=== PATIENT | male | born 1985 | race Caucasian/White ===

== ENCOUNTER 2017-04-05 14:21 | Emergency (ER) | payer OTHER ==
[2017-04-05 15:40] LABS: Basophils # (A) 0.1 k/uL (0-0.2); Basophils % (A) 1 %; CH 30.1; CHCM 34.4; Eosinophils # (A) 0.3 k/uL (0-0.7); Eosinophils % (A) 2 %; HCT 48.6 % (39.0-53.0); HDW 2.55; HGB 16.1 gm/dL (13.0-17.5); Luc % (Auto) 1; Lymphocytes # (A) 2.4 k/uL (1.0-4.8); Lymphocytes % (A) 18 %; MCH 29.2 pg (25.0-35.0); MCHC 33.2 g/dL (31.0-37.0); MCV 87.8 fL (80.0-100.0); Mean Platelet Volume 8.1; Monocytes # (A) 0.7 k/uL (0-1.0); Monocytes % (A) 5 %; Neutrophils # (A) 10.2 k/uL (1.3-7.7); Neutrophils % (A) 74 %; RBC 5.53 m/uL (4.30-5.90); RDW 15.2 % (11.5-15.5); WBC 13.8 k/uL (3.8-10.6); WBC (Perox) 13.71
[2017-04-05] MEDS: SODIUM CHLORIDE 0.9% 500 ML IV SCH ×3 (15:40→16:20)
--- NOTE | 2017-04-05 15:42 | ED ---
Abdominal Pain HPI - General Chief Complaint: Abdominal Pain Stated Complaint: abdominal pain Time Seen by Provider: 04/05/17 14:50 Source: patient Mode of arrival: ambulatory Limitations: no limitations - History of Present Illness Initial Comments: Kaleb is a 32-year-old male with a history of diverticulitis diagnosed approximately 5 and half to 6 months ago. This case of diverticulitis has been complicated by development of a anterior oh his fistula in his left lower quadrant. This fistula drains fluid as well as fecal material. Due to this the patient offers from chronic abdominal pain. She has been followed closely with infectious disease as well as general surgery. He is currently on oral amoxicillin due to previous abscess in his abdomen. He was scheduled to have surgery at this facility on Saturday however it was delayed until today and subsequently canceled due to insurance payment issues. Patient reports he didn' t know what to do after surgery was canceled so he came to the emergency department for reevaluation. She does report he continues to suffer from chronic abdominal pain, he does take Tylenol for this and states that he feels that Tylenol is no longer working. He is supposed to hear back from his insurance on April 15 regarding whether or not they will approve his surgery. Patient was diffusely followed at [facility] however he has transitioned his care to this hospital due to feeling that he wasn't getting treated at the hospital. In addition the patient was recently evaluated at an outside emergency department for abdominal pain 2 weeks ago at which time he had a computed tomography scan and was discharged home. - Related Data Home Medications Medication Instructions Recorded Confirmed Amoxicillin/Potassium Clav 1 tab PO Q12HR 03/29/17 04/05/17 [Augmentin 875-125 Tablet] Allergies Allergy/AdvReac Type Severity Reaction Status Date / Time No Known Allergies Allergy Verified 04/05/17 14:43 Review of Systems ROS Statement: Those systems with pertinent positive or pertinent negative responses have been documented in the HPI. ROS Other: All systems not noted in ROS Statement are negative. Constitutional: Denies: fever, chills ENT: Denies: throat pain Respiratory: Denies: cough, dyspnea Cardiovascular: Reports: palpitations. Denies: chest pain Endocrine: Reports: fatigue Gastrointestinal: Reports: abdominal pain, diarrhea. Denies: nausea, vomiting, constipation Genitourinary: Denies: dysuria Musculoskeletal: Denies: back pain Skin: Reports: other (fistula in LLQ of abdomen with surrounding skin irritation ) Neurological: Denies: weakness Psychiatric: Reports: anxiety (anxious over insurance issues regarding needed surgery) Hematological/Lymphatic: Denies: easy bleeding, easy bruising Past Medical History Additional Past Medical History / Comment(s): diverticular dx, hx of abscess, states has a fistula currently from drainage tube used for abscess. states also had thorocentesis History of Any Multi-Drug Resistant Organisms: None Reported Additional Past Surgical History / Comment(s): wisdom teeth Past Anesthesia/Blood Transfusion Reactions: No Reported Reaction Past Psychological History: No Psychological Hx Reported Smoking Status: Current every day smoker Past Alcohol Use History: None Reported Past Drug Use History: Marijuana - Past Family History Mother Family Medical History: No Reported History General Exam Limitations: no limitations General appearance: alert, anxious Head exam: Present: atraumatic, normocephalic Eye exam: Present: normal appearance, PERRL ENT exam: Present: normal exam Neck exam: Present: normal inspection. Absent: tenderness Respiratory exam: Present: normal lung sounds bilaterally. Absent: respiratory distress Cardiovascular Exam: Present: tachycardia GI/Abdominal exam: Present: soft, tenderness, normal bowel sounds, other ( fistula in LLQ draining ). Absent: distended, guarding, rebound Rectal exam: Present: deferred Extremities exam: Present: normal inspection, full ROM Back exam: Present: normal inspection Neurological exam: Present: alert, oriented X3, CN II-XII intact Psychiatric exam: Present: normal affect, normal mood Skin exam: Present: warm, dry Course Vital Signs 04/05/17 14:23 Temperature 98.3 F Pulse Rate 117 H Respiratory 18 Rate Blood Pressure 138/108 O2 Sat by Pulse 98 Oximetry Medical Decision Making - Medical Decision Making Patient seen and evaluated, history obtained from the patient Patient with known source of infection and tachycardia - will order sepsis order set Labs with only mild leukocytosis EKG, normal sinus rhythm, rate 98, noted to have incomplete right bundle branch block. Labs with only mild leukocytosis Patient reports feeling much better after morphine I discussed with the patient that at this time I don't feel there is anything acute that requires intervention. I do feel the patient needs follow-up with his infectious disease doctor to discuss whether or not he needs to continue antibiotics after they run out next week. In addition I think he needs continued follow-up with a surgeon to continue planning for surgical repair of the entero-colonic fistula. Patient agreed with this. Questions pertaining to care were answered to the best of my ability and the patient was discharged home in stable condition with plan for close follow-up with surgical planning. Patient was advised to call 911 or return to the emergency department should he develop any worsening signs of infection, worsening pain or any signs or symptoms she finds concerning. - Lab Data Result diagrams: 04/05/17 15:26 04/05/17 15: Lab Results 04/05/17 04/05/17 04/05/17 Range/Units 15:26 15: 15:26 WBC 13.8 H (3.8-10.6) k/uL RBC 5.53 (4.30-5.90) m/uL Hgb 16.1 (13.0-17.5) gm/dL Hct 48.6 (39.0-53.0) % MCV 87.8 (80.0-100.0) fL MCH 29.2 (25.0-35.0) pg MCHC 33.2 (31.0-37.0) g/dL RDW 15.2 (11.5-15.5) % Plt Count 259 (150-450) k/uL Neutrophils % 74 % Lymphocytes % 18 % Monocytes % 5 % Eosinophils % 2 % Basophils % 1 % Neutrophils # 10.2 H (1.3-7.7) k/uL Lymphocytes # 2.4 (1.0-4.8) k/uL Monocytes # 0.7 (0-1.0) k/uL Eosinophils # 0.3 (0-0.7) k/uL Basophils # 0.1 (0-0.2) k/uL PT (9.0-12.0) sec INR (<1.2) APTT (22.0-30.0) sec Sodium 137 (137-145) mmol/L Potassium 4.4 (3.5-5.1) mmol/L Chloride 103 (98-107) mmol/L Carbon Dioxide 23 (22-30) mmol/L Anion Gap 11 mmol/L BUN 14 (9-20) mg/dL Creatinine 0.70 (0.66-1.25) mg/dL Est GFR (MDRD) Af Amer >60 (>60 ml/min/1.73 sqM) Est GFR (MDRD) Non-Af >60 (>60 ml/min/1.73 sqM) Glucose 111 H (74-99) mg/dL Plasma Lactic Acid Mg 1.6 (0.7-2.0) mmol/L Calcium 9.7 (8.4-10.2) mg/dL Total Bilirubin 0.4 (0.2-1.3) mg/dL AST 30 (17-59) U/L ALT 58 (21-72) U/L Alkaline Phosphatase 69 (38-126) U/L Total Protein 7.8 (6.3-8.2) g/dL Albumin 4.4 (3.5-5.0) g/dL Urine Color Urine Appearance (Clear) Urine pH (5.0-8.0) Ur Specific [place] (1.001-1.035) Urine Protein (Negative) Urine Glucose (UA) (Negative) Urine Ketones (Negative) Urine Blood (Negative) Urine Nitrite (Negative) Urine Bilirubin (Negative) Urine Urobilinogen (<2.0) mg/dL Ur Leukocyte Esterase (Negative) 04/05/17 04/05/17 Range/Units 15:26 15:54 WBC (3.8-10.6) k/uL RBC (4.30-5.90) m/uL Hgb (13.0-17.5) gm/dL Hct (39.0-53.0) % MCV (80.0-100.0) fL MCH (25.0-35.0) pg MCHC (31.0-37.0) g/dL RDW (11.5-15.5) % Plt Count (150-450) k/uL Neutrophils % % Lymphocytes % % Monocytes % % Eosinophils % % Basophils % % Neutrophils # (1.3-7.7) k/uL Lymphocytes # (1.0-4.8) k/uL Monocytes # (0-1.0) k/uL Eosinophils # (0-0.7) k/uL Basophils # (0-0.2) k/uL PT 11.1 (9.0-12.0) sec INR 1.1 (<1.2) APTT 23.0 (22.0-30.0) sec Sodium (137-145) mmol/L Potassium (3.5-5.1) mmol/L Chloride (98-107) mmol/L Carbon Dioxide (22-30) mmol/L Anion Gap mmol/L BUN (9-20) mg/dL Creatinine (0.66-1.25) mg/dL Est GFR (MDRD) Af Amer (>60 ml/min/1.73 sqM) Est GFR (MDRD) Non-Af (>60 ml/min/1.73 sqM) Glucose (74-99) mg/dL Plasma Lactic Acid Mg (0.7-2.0) mmol/L Calcium (8.4-10.2) mg/dL Total Bilirubin (0.2-1.3) mg/dL AST (17-59) U/L ALT (21-72) U/L Alkaline Phosphatase (38-126) U/L Total Protein (6.3-8.2) g/dL Albumin (3.5-5.0) g/dL Urine Color Yellow Urine Appearance Clear (Clear) Urine pH 5.5 (5.0-8.0) Ur Specific [place] 1.024 (1.001-1.035) Urine Protein Negative (Negative) Urine Glucose (UA) Negative (Negative) Urine Ketones Negative (Negative) Urine Blood Negative (Negative) Urine Nitrite Negative (Negative) Urine Bilirubin Negative (Negative) Urine Urobilinogen <2.0 (<2.0) mg/dL Ur Leukocyte Esterase Negative (Negative) - EKG Data EKG shows normal: sinus rhythm Rate: normal Disposition Clinical Impression: Diverticulitis, Entero-colonic fistula Disposition: HOME SELF-CARE Condition: Good Instructions: Diverticulitis (ED) Referrals: Jassi Ivory MD [Primary Care Provider] - 1-2 days Benson Carrillo MD [STAFF PHYSICIAN] - 1-2 days Time of Disposition: 17:07
[2017-04-05 15:49] LABS: INR 1.1 (<1.2); Prothrombin Time 11.1 sec (9.0-12.0)
[2017-04-05 16:00] LABS: ALT 58 U/L (21-72); AST 30 U/L (17-59); Alkaline Phosphatase 69 U/L (38-126); Anion Gap 11 mmol/L; Blood Urea Nitrogen 14 mg/dL (9-20); Calcium 9.7 mg/dL (8.4-10.2); Carbon Dioxide 23 mmol/L (22-30); Chloride 103 mmol/L (98-107); Glucose 111 mg/dL (74-99); Non-African American GFR(MDRD) >60 (>60 ml/min/1.73 sqM); Potassium 4.4 mmol/L (3.5-5.1); Sodium 137 mmol/L (137-145); Total Bilirubin 0.4 mg/dL (0.2-1.3); Total Protein 7.8 g/dL (6.3-8.2)
[2017-04-05] MEDS ORDERED: MORPHINE SULFATE 4 MG/ML SYRINGE IV ONE (16:03)
[2017-04-05 16:07] LABS: Appearance,Urine Clear (Clear); Bilirubin,Urine Negative (Negative); Glucose,Urine (UA) Negative (Negative); Ketones,Urine Negative (Negative); Leukocyte Esterase,Urine Negative (Negative); Nitrite,Urine Negative (Negative); PH, Urine 5.5 (5.0-8.0); Protein,Urine Negative (Negative); Specific Gravity,Urine 1.024 (1.001-1.035); UA Billing (MACRO vs. MICRO) CHEM; Urobilinogen,Urine <2.0 mg/dL (<2.0)
[2017-04-05 17:58] VITALS: BP 138/90; PULSE 89; RESP 16; TEMP 97.8
== END 2017-04-05 17:56 | disposition home or self-care (01) ==
LOC: EC 14:21
DX: K63.2 Fistula of intestine (principal); K57.92 Diverticulitis of intestine, part unspecified, without perforation or abscess without bleeding; D72.829 Elevated white blood cell count, unspecified; I45.10 Unspecified right bundle-branch block; R00.0 Tachycardia, unspecified; L02.211 Cutaneous abscess of abdominal wall; F17.200 Nicotine dependence, unspecified, uncomplicated
CPT/HCPCS: 36415; 93005; 80053; 83605; 85025; 85610; 85730; 81003; 87040; 87086; 99284; 96374; 96361 ×2; J2270

== ENCOUNTER → 2018-09-22 | Outpatient (CLI) | payer OTHER ==
[2018-09-22 14:16] VITALS: BP 132/84; PULSE 88; TEMP 98.2; BMI 65.7
--- NOTE | 2018-09-22 16:49 | P.HPBAR ---
Bariatric H&P - History & Physicial H&P Date: 09/22/18 History & Physicial: Visit/CC: gastric sleeve consult Patient initial contact: Initial weight: 213.733 kg Initial weight in pounds: 471.20 Height: 5 ft 11 in Initial BMI: 65.7 Last weight: Current weight: 213.733 kg Current weight in pounds: 471.20 Current BMI: 65.7 Beatrice body weight (based on NIH guidelines): 78.018 kg Excess body weight loss: 0.0% The patient is a 33 year-old M who presents for Bariatric Assessment. Patient presents today for initial conversation received yesterday. He has had lifetime pros obesity. His BMI 65. Past Medical History Past Medical History: Diabetes Mellitus, Sleep Apnea/CPAP/BIPAP Additional Past Medical History / Comment(s): Type 2 DM, diverticular dx, hx of left colon fistula abscess, Hx thorocentesis (November 2016)., mild sleep apnea ( dx 10 yrs ago-no machine has sleep study scheduled for 11/04/18)., History of Any Multi-Drug Resistant Organisms: None Reported Past Surgical History: No Surgical Hx Reported Additional Past Surgical History / Comment(s): PICC LINE, THORACENTESIS, 05/03/17: "Low anterior resection takedown splenic flecture omenectomy" by Dr. Carrillo. Past Anesthesia/Blood Transfusion Reactions: No Reported Reaction Additional Past Anesthesia/Blood Transfusion Reaction / Comm: PT HAS NEVER RECEIVED ANESTHESIA Past Psychological History: ADD/ADHD Smoking Status: Former smoker Past Alcohol Use History: None Reported Additional Past Alcohol Use History / Comment(s): STARTED SMOKING AGE 17- quit July of 2018. Past Drug Use History: Marijuana Additional Drug Use History / Comment(s): occasional use, instructed not to use 24 hrs prior to Surgery. Pt states Medical Card. - Past Family History Mother Family Medical History: No Reported History Surgical - Exam Vital Signs Temp Pulse BP 98.2 F 88 132/84 09/22/18 13:48 09/22/18 13:48 09/22/18 13:48 - General well developed, well nourished, no distress - Abdomen Abdomen: soft, non tender Bariatric Assessment & Plan Plan: Morbid obesity, BMI 65. Patient is scheduled for EGD. Bariatric Checklist Checklist: Plan: Checklist: EGD: 1. Hiatal hernia: 2. H. Pylori: HgbA1c: Vitamin D: Smoking: Former smoker Primary care physician referral: Dr. Jassi Ivory ([place]) T: [phone] Psychiatry clearance: Cardiology clearance: Sleep study: Diet journal: VTE risk score: VTE risk level: Rehab needs at discharge:
== END | disposition home or self-care (01) ==
LOC: BARWHC3 13:37
PROVIDERS: ATTEND Surgery
DX: E66.01 Morbid (severe) obesity due to excess calories (principal); E11.9 Type 2 diabetes mellitus without complications; Z87.891 Personal history of nicotine dependence; Z68.44 Body mass index [BMI] 60.0-69.9, adult
CPT/HCPCS: 99211

== ENCOUNTER → 2018-09-22 | Outpatient (CLI) | payer OTHER | END | disposition home or self-care (01) | LOC: LABPAT 13:16 | PROVIDERS: ATTEND Surgery | DX: Z01.812 Encounter for preprocedural laboratory examination (principal); K43.0 Incisional hernia with obstruction, without gangrene | CPT/HCPCS: 36415 ==

== ENCOUNTER → 2018-09-29 | Outpatient (CLI) | payer OTHER ==
[2018-09-29 16:46] LABS: HCT 43.8 % (39.0-53.0); HGB 14.5 gm/dL (13.0-17.5); MCH 30.3 pg (25.0-35.0); MCHC 33.1 g/dL (31.0-37.0); MCV 91.5 fL (80.0-100.0); Mean Platelet Volume 8.2; Platelet Count 221 k/uL (150-450); RBC 4.79 m/uL (4.30-5.90); RDW 13.5 % (11.5-15.5); WBC 13.6 k/uL (3.8-10.6)
== END | disposition home or self-care (01) ==
LOC: LABPAT 15:47
PROVIDERS: ATTEND Anesthesiology
DX: Z01.818 Encounter for other preprocedural examination (principal); Z01.812 Encounter for preprocedural laboratory examination; K46.9 Unspecified abdominal hernia without obstruction or gangrene
CPT/HCPCS: 36415; 85027; 93005

== ENCOUNTER 2018-10-02 08:09 | Observation (INO) | payer OTHER ==
[2018-09-29 15:01] VITALS: BMI 65.7
[~2018-10-02 08:09] MED LIST: DEXAMETHASONE SOD PHOSPHATE 10 MG/ML 1 ML VIAL IV ONE; HEPARIN SODIUM,PORCINE 5,000 UNIT/ML 1 ML VIAL SQ ONE; HYDROmorphone 0.5 MG/0.5 ML SYRINGE IVP PRN; SCOPOLAMINE 1.5MG/72HR PATCH TRANSDERM ONE; ceFAZolin 3 GM in SODIUM CHLORIDE 0.9% 100 ML IVPB ONE
[2018-10-02] MEDS: LIDOCAINE 1% 20 ML VIAL (10MG/ML) FOR IV START INTRADERMA PRN ×2 (08:30→08:38)
[2018-10-02 08:38] LABS: Glucose,Whole Blood 116 mg/dL (75-99)
[2018-10-02] MEDS: LACTATED RINGERS 1,000 ML IV SCH (08:38)
[2018-10-02] MEDS: ONDANSETRON 4 MG/2 ML VIAL IVP ONE ×2 (08:38→12:29)
[2018-10-02] MEDS ORDERED: MIDAZOLAM (PF) 2 MG/2 ML VIAL IV ONE (08:42)
--- NOTE | 2018-10-02 09:52 | P.GSHP ---
History of Present Illness H&P Date: 10/02/18 Chief Complaint: Incisional hernia This is a 31-year-old male who has developed incisional hernia. Patient had a previous low anterior resection for diverticulitis. He has a periumbilical incisional hernia. He is morbidly obese with a BMI 66 Past Medical History Past Medical History: Diabetes Mellitus, Sleep Apnea/CPAP/BIPAP Additional Past Medical History / Comment(s): Type 2 DM, diverticular dx, hx of left colon fistula abscess, Hx thorocentesis (November 2016)., mild sleep apnea ( dx 10 yrs ago-no machine has sleep study scheduled for 11/04/18)., History of Any Multi-Drug Resistant Organisms: None Reported Past Surgical History: No Surgical Hx Reported Additional Past Surgical History / Comment(s): PICC LINE, THORACENTESIS, 05/03/17: "Low anterior resection takedown splenic flecture omenectomy" by Dr. Carrillo. Past Anesthesia/Blood Transfusion Reactions: No Reported Reaction Additional Past Anesthesia/Blood Transfusion Reaction / Comment(s): PT HAS NEVER RECEIVED ANESTHESIA Additional Past Alcohol Use History / Comment(s): STARTED SMOKING AGE 17- quit July of 2018. - Past Family History Mother Family Medical History: No Reported History Medications and Allergies Home Medications Medication Instructions Recorded Confirmed Type metFORMIN HCL [Glucophage] 500 mg PO BID 09/22/18 10/02/18 History Allergies Allergy/AdvReac Type Severity Reaction Status Date / Time No Known Allergies Allergy Verified 10/02/18 08:27 Surgical - Exam Vital Signs Temp Pulse Resp BP Pulse Ox 97.7 F 85 16 155/88 95 10/02/18 08:28 10/02/18 08:28 10/02/18 08:28 10/02/18 08:28 10/02/18 08:28 - General well developed, well nourished, no distress - Eyes PERRL - ENT normal pinna, normal nares - Neck no masses - Respiratory normal expansion - Cardiovascular Rhythm: regular - Abdomen Abdomen: soft, non tender Hernia: incisional (10 cm incisional hernia) Results - Labs Abnormal Lab Results - Last 24 Hours (Table) 10/02/18 Range/Units 08:30 POC Glucose (mg/dL) 116 H (75-99) mg/dL Assessment and Plan Assessment: Incisional hernia. We'll perform open repair.
[2018-10-02] MEDS ORDERED: HYDROmorphone (PF) 1 MG/ML ONE (10:02)
[2018-10-02] MEDS ORDERED: LIDOCAINE 1% INJ 10MG/ML (20 ML MDV) ONE (10:02)
[2018-10-02] MEDS ORDERED: PROPOFOL 10 MG/ML 20 ML VIAL IV ONE (10:02)
[2018-10-02] MEDS ORDERED: fentaNYL (PF) 50 MCG/ML 2 ML AMP ONE (10:02)
[2018-10-02] MEDS ORDERED: NEOSTIGMINE 1 MG/ML 10 ML VIAL ONE (10:02)
[2018-10-02] MEDS ORDERED: ROCURONIUM BROMIDE 10 MG/ML 10 ML VIAL IV ONE (10:02)
[2018-10-02] MEDS ORDERED: SUCCINYLCHOLINE CHLORIDE VIAL 200 MG/10 ML VIAL IV ONE (10:02)
[2018-10-02] MEDS ORDERED: GLYCOPYRROLATE 0.2 MG/ML 2 ML VIAL ONE (10:02)
[2018-10-02] MEDS ORDERED: NALOXONE 0.4 MG/ML 1 ML VIAL IV PRN (11:54)
[2018-10-02] MEDS ORDERED: LACTATED RINGERS 1,000 ML IV ONE (11:54)
[2018-10-02] MEDS ORDERED: ONDANSETRON 4 MG/2 ML VIAL IVP PRN (11:54)
--- NOTE | 2018-10-02 11:57 | P.OP ---
Date of Procedure: 10/02/18 Preoperative Diagnosis: Incisional hernia Postoperative Diagnosis: Viktor incisional hernia Morbid obesity BMI 66 Procedure(s) Performed: (Incisional hernia with mesh Anesthesia: ALEXEI Surgeon: Benson Carrillo Estimated Blood Loss (ml): 20 Pathology: none sent Condition: stable Disposition: PACU Description of Procedure: A shunt placed on the operative table in the supine position. He was morbidly obese. His BMI was 66. Patient received general anesthesia. His abdomen was prepped and draped usual sterile fashion. The patient had a large midline incisional hernia. The skin was incised midline. Using cautery the subcutaneous tissue divided. The abdominal wall was quite thick approximately 6 inches of subcutaneous fat. The fascial defect was visualized. The fascia was closed using left cautery. The fascial defect was then closed using number once traffic suture. After this performed a Prolene mesh was placed over the top of the repair and secured with the secure strap tacker. A BLADIMIR drains placed through separate stab incision and placed the top of the mesh. Freedom's fascia close [place]. Skin was closed with jonny. Patient top procedure well. He was sent to recovery in stable condition.
[2018-10-02] MEDS ORDERED: KETOROLAC 30 MG/ML 1 ML VIAL IVP ONE (12:31)
[2018-10-02] MEDS: HYDROmorphone 1 MG/ML 1 ML SYRINGE IVP ONE ×2 (12:41→12:49)
[2018-10-02] MEDS: HYDROmorphone 0.5 MG/0.5 ML SYRINGE IVP PRN ×3 (13:35→20:52)
--- NOTE | 2018-10-02 15:11 | P.CONS ---
History of Present Illness - Reason for Consult Obstructive sleep apnea - History of Present Illness 33--year-old male morbidly obese, with history of sleep apnea diet controlled diabetes mellitus came in for incisional hernia repair sepsis and underwent surgery patient is comparing of severe pain patient is already on Toradol and Dilaudid along with GI prophylaxis. Patient denied nausea vomiting. Patient's abdominal binder was discontinued as this is causing more pain as it started "for his belly. Patient denied any dysuria nausea vomiting. Review of Systems REVIEW OF SYSTEMS: CONSTITUTIONAL: No fever, no malaise, no fatigue. HEENT: No recent visual problems or hearing problems. Denied any sore throat. CARDIOVASCULAR: No chest pain, orthopnea, PND, no palpitations, no syncope. PULMONARY: No shortness of breath, no cough, no hemoptysis. GASTROINTESTINAL: No diarrhea, no nausea, no vomiting, NEUROLOGICAL: No headaches, no weakness, no numbness. HEMATOLOGICAL: Denies any bleeding or petechiae. GENITOURINARY: Denies any burning micturition, frequency, or urgency. MUSCULOSKELETAL/RHEUMATOLOGICAL: Denies any joint pain, swelling, or any muscle pain. ENDOCRINE: Denies any polyuria or polydipsia. The rest of the 14-point review of systems is negative. Past Medical History Past Medical History: Diabetes Mellitus, Sleep Apnea/CPAP/BIPAP Additional Past Medical History / Comment(s): Type 2 DM, diverticular dx, hx of left colon fistula abscess, Hx thorocentesis (November 2016)., mild sleep apnea ( dx 10 yrs ago-no machine has sleep study scheduled for 11/04/18)., History of Any Multi-Drug Resistant Organisms: None Reported Past Surgical History: No Surgical Hx Reported Additional Past Surgical History / Comment(s): PICC LINE, THORACENTESIS, 05/03/17: "Low anterior resection takedown splenic flecture omenectomy" by Dr. Carrillo. Past Anesthesia/Blood Transfusion Reactions: No Reported Reaction Additional Past Anesthesia/Blood Transfusion Reaction / Comm: PT HAS NEVER RECEIVED ANESTHESIA Past Psychological History: ADD/ADHD Smoking Status: Former smoker Past Alcohol Use History: None Reported Additional Past Alcohol Use History / Comment(s): STARTED SMOKING AGE 17- quit July of 2018. Past Drug Use History: Marijuana Additional Drug Use History / Comment(s): occasional use, instructed not to use 24 hrs prior to Surgery. Pt states Medical Card. - Past Family History Mother Family Medical History: No Reported History Medications and Allergies Home Medications Medication Instructions Recorded Confirmed Type metFORMIN HCL [Glucophage] 500 mg PO BID 09/22/18 10/02/18 History Allergies Allergy/AdvReac Type Severity Reaction Status Date / Time No Known Allergies Allergy Verified 10/02/18 08:27 Physical Exam Vitals: Vital Signs Temp Pulse Pulse Resp BP BP Pulse Ox 10/02/18 15:01 89 16 10/02/18 13:15 94 L 10/02/18 13:06 89 16 143/62 98 10/02/18 12:51 90 18 146/63 99 10/02/18 12:36 96 20 144/66 100 10/02/18 12:21 94 20 150/70 94 L 10/02/18 12:06 97.4 F L 97 18 149/80 96 10/02/18 08:57 82 16 142/63 95 10/02/18 08:28 97.7 F 85 16 155/88 95 Intake and Output 10/02/18 10/02/18 10/02/18 06:59 14:59 22:59 Intake Total 1700 Output Total 50 Balance 1650 Intake: IV 1300 Oral 400 Output: Estimated Blood Loss 50 PHYSICAL EXAMINATION: GENERAL: The patient is alert and oriented x3, not in any acute distress. Well developed, well nourished. HEENT: Pupils are round and equally reacting to light. EOMI. No scleral icterus. No conjunctival pallor. Normocephalic, atraumatic. No pharyngeal erythema. No thyromegaly. CARDIOVASCULAR: S1 and S2 present. No murmurs, rubs, or gallops. PULMONARY: Chest is clear to auscultation, no wheezing or crackles. ABDOMEN: Soft, nontender, nondistended, normoactive bowel sounds. Surgical site areas appear to be clean MUSCULOSKELETAL: No joint swelling or deformity. EXTREMITIES: No cyanosis, clubbing, or pedal edema. NEUROLOGICAL: Gross neurological examination did not reveal any focal deficits. SKIN: No rashes. Results Labs: Abnormal Lab Results - Last 24 Hours (Table) 10/02/18 Range/Units 08:30 POC Glucose (mg/dL) 116 H (75-99) mg/dL Assessment and Plan Plan: Status sleep apnea: Patient will be resumed and continued on 9 CPAP machine. -Morbid obesity: Counseling was provided patient is following up in bariatric surgery clinic incisional hernia repair and patient is on appropriate pain medications for the pain management as per primary service -DVT prophylaxis as per primary service -Diet controlled diabetes mellitus will monitor blood sugars he had no further intervention at this time.
[2018-10-02] MEDS: KETOROLAC 30 MG/ML 1 ML VIAL IVP SCH ×2 (17:53→23:37)
[2018-10-02] MEDS: HYDROcodone/APAP 5-325MG 1 EACH TAB PO PRN (19:43)
[2018-10-02] MEDS: DOCUSATE 100 MG CAP PO SCH (20:51)
[2018-10-03] MEDS: HYDROmorphone 0.5 MG/0.5 ML SYRINGE IVP PRN (00:49)
[2018-10-03] MEDS: LACTATED RINGERS 1,000 ML IV SCH ×2 (04:33→05:48)
[2018-10-03] MEDS: KETOROLAC 30 MG/ML 1 ML VIAL IVP SCH ×2 (05:46→11:41)
[2018-10-03 08:28] VITALS: BP 132/84; PULSE 83; RESP 16; TEMP 97.5
[2018-10-03] MEDS ORDERED: ENOXAPARIN 40 MG/0.4 ML SYRINGE SQ SCH (09:00)
[2018-10-03] MEDS: DOCUSATE 100 MG CAP PO SCH (09:23)
[2018-10-03] MEDS: HYDROcodone/APAP 5-325MG 1 EACH TAB PO PRN (09:23)
--- NOTE | 2018-10-03 10:12 | P.DS ---
Providers Date of admission: 10/02/18 21:42 Expected date of discharge: 10/03/18 Attending physician: Benson Carrillo Consults: 10/02/18 11:54 Consult Physician Routine Consulting Provider: Cherelle Salmeron Consult Reason/Comments: Medical management Do you want consulting provider notified?: Yes Primary care physician: [facility] Course: 33-year-old male who underwent repair of incisional hernia with Dr. Carrillo on 10/02/2018. Patient is doing well postoperatively without any immediate complications. Patient's pain is controlled on oral medications. Denies nausea or vomiting. Tolerating PO intake. Vital signs are stable. Patient is stable for discharge home today. Please see EMR for further hospital course details. Discharge diagnosis 1. s/p repair of incisional hernia The above dictated assessment and findings were discussed with Dr. Carrillo. The impression and plan of care have been directed as dictated. Saima Uribe, nurse practitioner, acting as scribe for Dr. Carrillo. Plan - Discharge Summary Discharge Rx Participant: Yes New Discharge Prescriptions: New Hydrocodone/Acetaminophen [[place] 5-325] 1 tab PO Q4HR PRN 3 Days #18 tab PRN Reason: Pain Docusate [Colace] 100 mg PO BID #30 capsule No Action metFORMIN HCL [Glucophage] 500 mg PO BID Discharge Medication List metFORMIN HCL [Glucophage] 500 mg PO BID 09/22/18 [History] Docusate [Colace] 100 mg PO BID #30 capsule 10/03/18 [Rx] Hydrocodone/Acetaminophen [[place] 5-325] 1 tab PO Q4HR PRN 3 Days #18 tab 10/03/18 [Rx] Follow up Appointment(s)/Referral(s): Benson Carrillo MD [STAFF PHYSICIAN] - 10/09/18 3:20 pm
--- NOTE | 2018-10-03 11:12 | P.PN ---
Subjective patient is clinically doing well can be discharged from medical perspective. Pain is better controlled no overnight events. I counseled him regarding the importance of sleep study, weight loss. Constitutional: Denied any fatigue denied any fever. Cardio vascular: denied any chest pain, palpitations Gastrointestinal denied any nausea vomiting Pulmonary: Denied any shortness of breath cough Neurologic denied any new focal deficits All inpatient medications were reviewed and appropriate changes in these medications as dictated in the interval history and assessment and plan. Objective - Vital Signs Vital signs: Vital Signs Temp 97.5 F L 10/03/18 07:00 Pulse 83 10/03/18 07:00 Resp 16 10/03/18 07:00 BP 132/84 10/03/18 07:00 Pulse Ox 97 10/03/18 07:00 Intake & Output 10/02/18 10/03/18 10/03/18 18:59 06:59 18:59 Intake Total 1700 200 Output Total 600 60 30 Balance 1100 140 -30 Intake: IV 1300 Intake, IV Titration 200 Amount Lactated Ringers 1,000 ml 200 @ 20 mls/hr IV .Q24H CHRISTOPH Rx#:[id number] Oral 400 Output: Drainage 100 60 30 Abdomen 100 60 30 Urine 450 Estimated Blood Loss 50 Other: Voiding Method Toilet Toilet Urinal # Voids 1 1 - Exam PHYSICAL EXAMINATION: GENERAL: The patient is alert and oriented x3, not in any acute distress. Well developed, well nourished. HEENT: Pupils are round and equally reacting to light. EOMI. No scleral icterus. No conjunctival pallor. Normocephalic, atraumatic. No pharyngeal erythema. No thyromegaly. CARDIOVASCULAR: S1 and S2 present. No murmurs, rubs, or gallops. PULMONARY: Chest is clear to auscultation, no wheezing or crackles. ABDOMEN: Soft, nontender, nondistended, normoactive bowel sounds. Surgical site areas appear to be clean MUSCULOSKELETAL: No joint swelling or deformity. EXTREMITIES: No cyanosis, clubbing, or pedal edema. NEUROLOGICAL: Gross neurological examination did not reveal any focal deficits. SKIN: No rashes. Assessment and Plan Plan: Status sleep apnea: -Morbid obesity: Counseling was provided patient is following up in bariatric surgery clinic incisional hernia repair and patient is on appropriate pain medications -DVT prophylaxis as per primary service -Diet controlled diabetes mellitus will monitor blood sugars he had no further intervention at this time.
== END 2018-10-03 13:54 | disposition home or self-care (01) ==
LOC: OR 08:09 → 4SSUR 12:06 → OR 21:42
PROVIDERS: ADMIT Surgery; ATTEND Surgery
DX: K43.2 Incisional hernia without obstruction or gangrene (principal); E66.01 Morbid (severe) obesity due to excess calories; Z68.44 Body mass index [BMI] 60.0-69.9, adult; E11.9 Type 2 diabetes mellitus without complications; G47.33 Obstructive sleep apnea (adult) (pediatric); Z99.89 Dependence on other enabling machines and devices; Z98.0 Intestinal bypass and anastomosis status; Z87.891 Personal history of nicotine dependence; Z79.84 Long term (current) use of oral hypoglycemic drugs
CPT/HCPCS: 49560; 49568; 86900; 86901; 86850; G0378 ×2; C1781; J0330; J1644; J1100; J2710; J0690; J2405; J2001; J1650; J3010; J1885 ×2; J1170 ×3; J2704; J2250

== ENCOUNTER 2018-11-03 06:43 | Day surgery (SDC) | payer OTHER ==
[2018-10-29 13:41] VITALS: BMI 62.7
[~2018-11-03 06:43] MED LIST changes: -DEXAMETHASONE SOD PHOSPHATE 10 MG/ML 1 ML VIAL IV ONE; -HEPARIN SODIUM,PORCINE 5,000 UNIT/ML 1 ML VIAL SQ ONE; -HYDROmorphone 0.5 MG/0.5 ML SYRINGE IVP PRN; +LACTATED RINGERS 1,000 ML IV SCH; -SCOPOLAMINE 1.5MG/72HR PATCH TRANSDERM ONE; -ceFAZolin 3 GM in SODIUM CHLORIDE 0.9% 100 ML IVPB ONE
[2018-11-03 07:24] VITALS: TEMP 97.7
[2018-11-03] MEDS ORDERED: PROPOFOL 10 MG/ML 20 ML VIAL IV ONE (07:47)
[2018-11-03 07:50] LABS: Glucose,Whole Blood 119 mg/dL (75-99)
--- NOTE | 2018-11-03 07:50 | P.GSHP ---
History of Present Illness H&P Date: 11/03/18 Chief Complaint: GERD This is a 33-year-old male who presents today for EGD. He's had issues with GERD. His BMI is 63. He is undergoing workup for sleeve gastrectomy. Past Medical History Past Medical History: Diabetes Mellitus, Sleep Apnea/CPAP/BIPAP Additional Past Medical History / Comment(s): Type 2 DM, diverticular dx, hx of left colon fistula abscess, Hx thorocentesis (November 2016). mild sleep apnea ( dx 10 yrs ago-no machine has sleep study scheduled for 11/04/18). INCISIONAL HERNIA 10/02/18, SITES HEALING WELL. History of Any Multi-Drug Resistant Organisms: None Reported Past Surgical History: Bowel Resection, Hernia Repair Additional Past Surgical History / Comment(s): PICC LINE, THORACENTESIS, 05/03/17: "Low anterior resection takedown splenic flecture omenectomy" by Dr. Carrillo. INCISIONAL HERNIA W/ MESH 10/02/18. Past Anesthesia/Blood Transfusion Reactions: No Reported Reaction Additional Past Anesthesia/Blood Transfusion Reaction / Comment(s): PT HAS NEVER RECEIVED ANESTHESIA Smoking Status: Former smoker - Past Family History Mother Family Medical History: No Reported History Medications and Allergies Home Medications Medication Instructions Recorded Confirmed Type metFORMIN HCL [Glucophage] 500 mg PO BID 09/22/18 11/03/18 History Ibuprofen [Advil] 800 mg PO Q8HR PRN 10/29/18 10/29/18 History Allergies Allergy/AdvReac Type Severity Reaction Status Date / Time No Known Allergies Allergy Verified 10/29/18 13:25 Surgical - Exam Vital Signs Temp Pulse Resp BP Pulse Ox 97.7 F 82 14 138/80 97 11/03/18 07:20 11/03/18 07:20 11/03/18 07:20 11/03/18 07:20 11/03/18 07:20 - General well developed, well nourished, no distress - Eyes PERRL - ENT normal pinna - Neck no masses - Respiratory normal expansion - Cardiovascular Rhythm: regular - Abdomen Abdomen: soft, non tender Assessment and Plan Assessment: GERD, morbid obesity. We'll perform EGD.
--- NOTE | 2018-11-03 08:02 | P.OP ---
Date of Procedure: 11/03/18 Preoperative Diagnosis: Morbid obesity GERD BMI 63 Postoperative Diagnosis: Antral gastritis Procedure(s) Performed: EGD Anesthesia: MAC Surgeon: Benson Carrillo Pathology: other (Antrum) Condition: stable Disposition: PACU Description of Procedure: The patient's placed on the endoscopy table in the lateral position. He received IV sedation. The gastroscope placed oropharynx and passed in the esophagus and into the stomach. Scope was then placed through the pylorus. The first and second portion of the duodenum appeared normal. Scope was then brought back the antrum this was mildly inflamed. A biopsies was performed. The scope was then retroflexed and the remainder of the stomach appeared normal. The GE junction was at 40 cm the distal esophagus appeared normal. There was no evidence of a significant hiatal hernia. The proximal esophagus appeared normal. Scope was withdrawn for patient.
[2018-11-03 08:12] VITALS: RESP 16
[2018-11-03 08:50] VITALS: BP 122/68; PULSE 86
== END 2018-11-03 09:10 | disposition home or self-care (01) ==
LOC: ORWHC2ENDO 06:43
PROVIDERS: ATTEND Surgery
DX: K21.9 Gastro-esophageal reflux disease without esophagitis (principal); K29.50 Unspecified chronic gastritis without bleeding; E11.9 Type 2 diabetes mellitus without complications; Z90.49 Acquired absence of other specified parts of digestive tract; Z95.828 Presence of other vascular implants and grafts; Z87.891 Personal history of nicotine dependence; Z79.84 Long term (current) use of oral hypoglycemic drugs; E66.01 Morbid (severe) obesity due to excess calories; Z68.44 Body mass index [BMI] 60.0-69.9, adult; G47.33 Obstructive sleep apnea (adult) (pediatric)
CPT/HCPCS: 88305; 43239; J2704

== ENCOUNTER → 2018-11-04 | Outpatient (CLI) | payer OTHER ==
--- NOTE | 2018-11-04 21:15 | CONS ---
CONSULTATION REASON FOR CONSULTATION: Sleep apnea. This is a morbidly obese 33-year-old male patient who was referred to me for sleep apnea evaluation. The patient has gained significant amount of weight over the years. For example over the past 10 years, he has gained more than 150 pounds. He had a complicated diverticulitis and subsequently he required a colectomy and he developed an abdominal hernia which was repaired recently by Dr. Carrillo. His colectomy was 2 years ago. His hernia repair was approximately a month ago. The patient, however, is quite symptomatic. He snores, quits breathing. He is somnolent and sleepy during the day and he has the classical manifestations of obstructive sleep apnea. He goes to bed around 11 p.m., wakes up at 5 a.m. in the morning, tired and fatigued and at times has difficulty in functioning. 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 He is currently seeking bariatric surgery. No sleep paralysis. No hallucinations. No cataplexy. PAST MEDICAL HISTORY: Morbid obesity, and diabetes mellitus. PAST SURGICAL HISTORY: Includes complicated diverticulitis requiring bowel resection. Incisional hernia repair and endoscopy including EGD. DRUG ALLERGIES: Not known. OUTPATIENT MEDICATION: Includes metformin 500 mg twice a day. SOCIAL HISTORY: Occasional smoker. No history of alcohol. No history of IV drugs. FAMILY HISTORY: Negative for sleep apnea. REVIEW OF SYSTEMS: Fourteen-point review of system was done. Denies waking up choking or gasping for air. No restlessness in lower extremities. No sleepwalking or sleep talking. No grinding of the teeth. He is a mouth breather. He wakes up with dry mouth. He has occasional palpitations. No heartburn. No chest pain, claustrophobia or depression. His current vital signs, BP is 158/75, pulse 90, respirations 16, temperature 98.3, saturation 95% on room air. Height 5 feet 11 inches, weight is 468. BMI 65.2, and neck size 20.5 inches. General appearance: Obese, calm, comfortable. Head is atraumatic, normocephalic. NECK: Supple. There is no JVD. No goiter or neck masses. Mallampati class IV. There is no goiter or neck masses. Lungs diminished otherwise clear especially in the lung bases. HEART: Sounds are distant. Regular rate and rhythm. Normal S1, S2. ABDOMEN: Obese, soft. Organs cannot be palpated. There is no direct tenderness, rebound or guarding. EXTREMITIES: Trace edema. No cyanosis or clubbing. Skin negative for any wounds. No cellulitis. No wounds or ulcerations. The abdominal wound over the anterior abdominal wall was dry clean and intact. The patient is wearing an abdominal binder. NEUROLOGIC: Alert and oriented x3. There is no focal neurological deficits. PSYCHIATRIC: Negative for anxiety or depression. IMPRESSION: 1. Chronic hypersomnia under investigation high likelihood for obstructive sleep apnea. 2. Morbid obesity with a BMI of 65.2. 3. Loud snoring. 4. Abdominal hernia repair. 5. History of complicated diverticulitis status post colectomy with primary anastomosis. 6. pickup driver. PLAN: This patient is currently not working. He has not been working for around a year. 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 He has manifestations of obstructive sleep apnea that needs to be further investigated. He is also seeking bariatric surgery in the future. For all these reasons, a polysomnogram is indicated. Implement good sleep hygiene measures. Sleep on this side. Encourage losing weight and will make further recommendations if CPAP treatment is needed based on the results of the polysomnogram. MMODL / IJN: [id number] /
== END | disposition home or self-care (01) ==
LOC: SLEEP 14:25
PROVIDERS: ATTEND Internal Medicine Critical Care Medicine
DX: G47.10 Hypersomnia, unspecified (principal); E66.01 Morbid (severe) obesity due to excess calories; R06.83 Snoring; E11.9 Type 2 diabetes mellitus without complications; Z68.44 Body mass index [BMI] 60.0-69.9, adult; Z87.19 Personal history of other diseases of the digestive system; Z90.49 Acquired absence of other specified parts of digestive tract; Z98.890 Other specified postprocedural states; Z79.84 Long term (current) use of oral hypoglycemic drugs
CPT/HCPCS: 99211

== ENCOUNTER → 2018-12-01 | Outpatient (CLI) | payer OTHER ==
[2018-12-01 15:39] VITALS: BP 154/93; PULSE 90; TEMP 98.4; BMI 65.4
--- NOTE | 2018-12-05 13:22 | P.HPBAR ---
Bariatric H&P - History & Physicial H&P Date: 12/01/18 History & Physicial: Visit/CC: follow up egd Patient initial contact: Initial weight: 213.733 kg Initial weight in pounds: 471.20 Height: 5 ft 11 in Initial BMI: 65.7 Last weight: Current weight: 212.735 kg Current weight in pounds: 469.00 Current BMI: 65.4 [place] body weight (based on NIH guidelines): 78.018 kg Excess body weight loss: 0.7% The patient is a 33 year-old M who presents for Bariatric Assessment. Patient presents today for presurgical consultation. He says has EGD performed. His BMI is 65. Past Medical History Past Medical History: Diabetes Mellitus, Sleep Apnea/CPAP/BIPAP Additional Past Medical History / Comment(s): Type 2 DM, diverticular dx, hx of left colon fistula abscess, Hx thorocentesis (November 2016)., mild sleep apnea ( dx 10 yrs ago-no machine has sleep study scheduled for 11/04/18)., History of Any Multi-Drug Resistant Organisms: None Reported Past Surgical History: No Surgical Hx Reported, Hernia Repair Additional Past Surgical History / Comment(s): PICC LINE, THORACENTESIS, 05/03/17: "Low anterior resection takedown splenic flecture omenectomy" by Dr. Carrillo. Past Anesthesia/Blood Transfusion Reactions: No Reported Reaction Additional Past Anesthesia/Blood Transfusion Reaction / Comm: PT HAS NEVER RECEIVED ANESTHESIA Past Psychological History: ADD/ADHD Smoking Status: Former smoker Past Alcohol Use History: None Reported Additional Past Alcohol Use History / Comment(s): STARTED SMOKING AGE 17- quit July of 2018. Past Drug Use History: Marijuana Additional Drug Use History / Comment(s): occasional use, instructed not to use 24 hrs prior to Surgery. Pt states Medical Card. - Past Family History Mother Family Medical History: No Reported History Surgical - Exam Vital Signs Temp Pulse BP 98.4 F 90 154/93 12/01/18 15:37 12/01/18 15:37 12/01/18 15:37 - General well nourished, no distress - Abdomen Abdomen: soft, non tender Bariatric Assessment & Plan Plan: Morbid obesity, BMI 65. Patient will follow-up in 8 weeks. We will schedule him for sleeve gastrectomy once his insurance authorization requirements have been met. Bariatric Checklist Checklist: Plan: Checklist: EGD: 1. Hiatal hernia: 2. H. Pylori: HgbA1c: Vitamin D: Smoking: Former smoker Primary care physician referral: Dr. Jassi Ivory ([place]) T: [phone] Psychiatry clearance: Cardiology clearance: Sleep study: Diet journal: VTE risk score: VTE risk level: Rehab needs at discharge:
== END | disposition home or self-care (01) ==
LOC: BARWHC3 14:57
PROVIDERS: ATTEND Surgery
DX: E66.01 Morbid (severe) obesity due to excess calories (principal); Z68.44 Body mass index [BMI] 60.0-69.9, adult
CPT/HCPCS: 99211

== ENCOUNTER → 2019-02-16 | Outpatient (CLI) | payer OTHER ==
[2019-02-16 15:05] VITALS: BP 108/82; PULSE 58; TEMP 98.3; BMI 64.0
--- NOTE | 2019-02-16 15:07 | P.HPBAR ---
Bariatric H&P - History & Physicial H&P Date: 02/16/19 History & Physicial: Visit/CC: presurgical visit Patient initial contact: Initial weight: 213.733 kg Initial weight in pounds: 471.20 Height: 5 ft 11 in Initial BMI: 65.7 Last weight: Current weight: 208.199 kg Current weight in pounds: 459.00 Current BMI: 64.0 [place] body weight (based on NIH guidelines): 78.018 kg Excess body weight loss: 4.0% The patient is a 33 year-old M who presents for Bariatric Assessment. Patient presents today for sleeve gastrectomy consultation. Apparently he has almost completed his supervised weight loss. He remains morbidly obese with BMI 64. Past Medical History Past Medical History: Diabetes Mellitus, Sleep Apnea/CPAP/BIPAP Additional Past Medical History / Comment(s): Type 2 DM, diverticular dx, hx of left colon fistula abscess, Hx thorocentesis (November 2016)., mild sleep apnea ( dx 10 yrs ago-no machine has sleep study scheduled for 11/04/18)., History of Any Multi-Drug Resistant Organisms: None Reported Past Surgical History: No Surgical Hx Reported, Hernia Repair Additional Past Surgical History / Comment(s): PICC LINE, THORACENTESIS, 05/03/17: "Low anterior resection takedown splenic flecture omenectomy" by Dr. Carrillo. Past Anesthesia/Blood Transfusion Reactions: No Reported Reaction Additional Past Anesthesia/Blood Transfusion Reaction / Comm: PT HAS NEVER RECEIVED ANESTHESIA Past Psychological History: ADD/ADHD Smoking Status: Former smoker Past Alcohol Use History: None Reported Additional Past Alcohol Use History / Comment(s): STARTED SMOKING AGE 17- quit July of 2018. Past Drug Use History: Marijuana Additional Drug Use History / Comment(s): occasional use, instructed not to use 24 hrs prior to Surgery. Pt states Medical Card. - Past Family History Mother Family Medical History: No Reported History Surgical - Exam Vital Signs Temp Pulse BP 98.3 F 58 L 108/82 02/16/19 15:02 02/16/19 15:02 02/16/19 15:02 - General well developed, well nourished, no distress - Eyes PERRL - ENT normal pinna - Neck no masses - Respiratory normal expansion - Cardiovascular Rhythm: regular - Abdomen Abdomen: soft Hernia: incisional Bariatric Assessment & Plan Plan: RBC. Patient will be scheduled for sleeve gastrectomy once his insurance authorization criteria have been met. Bariatric Checklist Checklist: Plan: Checklist: EGD: 1. Hiatal hernia: 2. H. Pylori: HgbA1c: Vitamin D: Smoking: Former smoker Primary care physician referral: Dr. Jassi Ivory ([place]) T: [phone] Psychiatry clearance: Cardiology clearance: Sleep study: Diet journal: VTE risk score: VTE risk level: Rehab needs at discharge:
== END | disposition home or self-care (01) ==
LOC: BARWHC3 14:15
PROVIDERS: ATTEND Surgery
DX: E66.01 Morbid (severe) obesity due to excess calories (principal); Z68.44 Body mass index [BMI] 60.0-69.9, adult; Z90.49 Acquired absence of other specified parts of digestive tract; Z87.891 Personal history of nicotine dependence
CPT/HCPCS: 99211

== ENCOUNTER → 2019-02-17 | Outpatient (CLI) | payer OTHER ==
--- NOTE | 2019-02-17 16:13 | PN ---
PROGRESS NOTE This is a 33-year-old morbidly obese male patient with severe obstructive sleep apnea with an AHI of 152 who is currently on a CPAP pressure of 13 cm of water. The patient is coming in for a compliancy check. The patient is doing extremely well. He has marked improvement in his tiredness, sleepiness and fatigue that he has been experiencing during the day. He is using an AirFit N20 medium-sized nose mask. He has been very compliant. He is wearing the machine every night without any interruption. His CPAP use is around 29/30. However, he has been achieving only 4 hours and his average usage is around 4 hours and his CPAP use for more than 4 hours is barely above 50%. His leak is around 15 L/minute. However, his AHI is down to 0.3. As such, his treatment is extremely successful. Nevertheless, the patient has to put on more hours on his CPAP to achieve insurance requirements and standards for CPAP use. His [place] score is down to 1, indicating excellent clinical response. His sleep efficiency has improved. His sleep quality is improved. His daytime hypersomnia has recovered. He is seeking bariatric surgery. REVIEW OF SYSTEMS: Fourteen-point review of systems was done. Positive findings were all mentioned above in the history of present illness. The patient currently weight 459 pounds, which is 7 to 8 pounds less compared to his last evaluation here in the office. He is trying to lose weight. He is also seeking bariatric surgery. He is going on a diet and dietary modifications are also being implemented. No heartburn, chest pain, shortness of breath. Overnight he is able to tolerate a nasal mask without any oral leaks. PHYSICAL EXAMINATION: VITAL SIGNS: His BP is 142/72, pulse 80, respirations 16, temperature 97.7. Weight is 459. Saturation 95% on room air. GENERAL APPEARANCE: Calm, comfortable, obese. HEAD: Atraumatic, normocephalic. NECK: Supple. No JVD. No goiter or neck masses. Mallampati class IV. LUNGS: Diminished; otherwise clear. HEART: Heart sounds are distant. Regular rate and rhythm. Normal S1, S2. No S3, S4. No murmurs. ABDOMEN: Morbidly obese. Organs cannot be palpated. There is no direct tenderness, rebound tenderness or guarding. EXTREMITIES: No edema. No cyanosis or clubbing. NEUROLOGIC: Alert and oriented x3. No focal neurological deficits. PSYCHIATRIC: Negative for anxiety or depression. SKIN is negative for any wounds or ulceration. IMPRESSION: 1. Severe obstructive sleep apnea with an apnea/hypopnea index of 152.4, currently on CPAP at a pressure of 13 cm. The patient has demonstrated excellent clinical response and his treatment is extremely successful. His AHI has dropped down to 0.3 while on treatment. Nevertheless, he is not meeting insurance standards and he needs to increase the average number of hours of CPAP use per night. 2. Poor sleep efficiency, improved with CPAP therapy. 3. Snoring, recovered with CPAP therapy. 4. Hypersomnia, recovered with CPAP therapy. [place] score is down to 1 from a baseline of 15. 5. minibus driver. PLAN: The patient will be asked to come back in a month to re-evaluate his compliance data; would like to see more than 4 hours of CPAP use more than 70% of the time. Meanwhile, no need for any pressure adjustments. Continue CPAP at the same pressure. Continue the same mask interface. Encourage weight loss. Proceed with bariatric surgery evaluation. Will continue to follow. He will come back and see me back in a month's time for another check. MMODL / IJN: [id number] /
== END | disposition home or self-care (01) ==
LOC: SLEEP 13:37
PROVIDERS: ATTEND Internal Medicine Critical Care Medicine
DX: G47.33 Obstructive sleep apnea (adult) (pediatric) (principal); E66.01 Morbid (severe) obesity due to excess calories; Z98.84 Bariatric surgery status

== ENCOUNTER → 2019-03-02 | Outpatient (CLI) | payer OTHER ==
[2019-03-02 10:24] VITALS: BMI 64.0
--- NOTE | 2019-03-02 13:42 | P.HPBAR ---
Bariatric H&P - History & Physicial H&P Date: 03/02/19 History & Physicial: Visit/CC: Presurgical Diet Class 1 & 2 Patient initial contact: Initial weight: 213.733 kg Initial weight in pounds: 471.20 Height: 5 ft 11 in Initial BMI: 65.7 Last weight: Current weight: 208.38 kg Current weight in pounds: 459.40 Current BMI: 64.0 [place] body weight (based on NIH guidelines): 78.018 kg Excess body weight loss: 3.9% The patient is a 33 year-old M who presents for Bariatric Assessment. Patient presents today for presurgical consultation. He has just finished his new patient diet class. The patient has an excellent understanding of the sleeve gastrectomy. We will over the risks and benefits of the procedure again. His BMI 64. Past Medical History Past Medical History: Diabetes Mellitus, Sleep Apnea/CPAP/BIPAP Additional Past Medical History / Comment(s): Type 2 DM, diverticular dx, hx of left colon fistula abscess, Hx thorocentesis (November 2016)., mild sleep apnea ( dx 10 yrs ago-no machine has sleep study scheduled for 11/04/18)., History of Any Multi-Drug Resistant Organisms: None Reported Past Surgical History: No Surgical Hx Reported, Hernia Repair Additional Past Surgical History / Comment(s): PICC LINE, THORACENTESIS, 05/03/17: "Low anterior resection takedown splenic flecture omenectomy" by Dr. Carrillo. Past Anesthesia/Blood Transfusion Reactions: No Reported Reaction Additional Past Anesthesia/Blood Transfusion Reaction / Comm: PT HAS NEVER RECEIVED ANESTHESIA Past Psychological History: ADD/ADHD Smoking Status: Former smoker Past Alcohol Use History: None Reported Additional Past Alcohol Use History / Comment(s): STARTED SMOKING AGE 17- quit July of 2018. Past Drug Use History: Marijuana Additional Drug Use History / Comment(s): occasional use, instructed not to use 24 hrs prior to Surgery. Pt states Medical Card. - Past Family History Mother Family Medical History: No Reported History Surgical - Exam - General well developed, well nourished, no distress - Eyes PERRL - ENT normal pinna - Neck no masses - Respiratory normal expansion - Cardiovascular Rhythm: regular - Abdomen Abdomen: soft, non tender Bariatric Assessment & Plan Plan: Morbid obesity with BMI 64. Patient will be scheduled for sleeve gastrectomy once his insurance authorization is complete. Bariatric Checklist Checklist: Plan: Checklist: EGD: 1. Hiatal hernia: 2. H. Pylori: HgbA1c: Vitamin D: Smoking: Former smoker Primary care physician referral: Dr. Jassi Ivory ([place]) T: [phone] Psychiatry clearance: Cardiology clearance: Sleep study: Diet journal: VTE risk score: VTE risk level: Rehab needs at discharge:
== END | disposition home or self-care (01) ==
LOC: BARWHC3 08:33
PROVIDERS: ATTEND Surgery
DX: E66.01 Morbid (severe) obesity due to excess calories (principal); Z68.44 Body mass index [BMI] 60.0-69.9, adult; Z87.891 Personal history of nicotine dependence
CPT/HCPCS: 97804; G0463; 99211

== ENCOUNTER → 2019-05-22 | Outpatient (CLI) | payer OTHER ==
[2019-05-22 13:15] LABS: Basophils # (A) 0.1 k/uL (0-0.2); Basophils % (A) 1 %; Eosinophils # (A) 0.3 k/uL (0-0.7); Eosinophils % (A) 2 %; HCT 44.3 % (39.0-53.0); HGB 14.5 gm/dL (13.0-17.5); Lymphocytes # (A) 2.2 k/uL (1.0-4.8); Lymphocytes % (A) 19 %; MCH 29.4 pg (25.0-35.0); MCHC 32.8 g/dL (31.0-37.0); MCV 89.6 fL (80.0-100.0); Mean Platelet Volume 8.6; Monocytes # (A) 0.4 k/uL (0-1.0); Monocytes % (A) 4 %; Neutrophils # (A) 8.4 k/uL (1.3-7.7); Neutrophils % (A) 73 %; Platelet Count 210 k/uL (150-450); RBC 4.95 m/uL (4.30-5.90); RDW 13.8 % (11.5-15.5); WBC 11.5 k/uL (3.8-10.6)
[2019-05-22 13:32] LABS: ALT 31 U/L (4-49); AST 29 U/L (17-59); African American GFR (CKD) >90 (>60 ml/min/1.73 sqM); Albumin 4.4 g/dL (3.5-5.0); Alkaline Phosphatase 89 U/L (38-126); Anion Gap 8 mmol/L; Blood Urea Nitrogen 18 mg/dL (9-20); Calcium 9.8 mg/dL (8.4-10.2); Carbon Dioxide 31 mmol/L (22-30); Chloride 102 mmol/L (98-107); Glucose 108 mg/dL (74-99); Non-African American GFR(CKD) >90 (>60 ml/min/1.73 sqM); Potassium 5.1 mmol/L (3.5-5.1); Sodium 141 mmol/L (137-145); Total Bilirubin 0.5 mg/dL (0.2-1.3)
== END | disposition home or self-care (01) ==
LOC: LABPAT 12:10
PROVIDERS: ATTEND Surgery
DX: Z01.812 Encounter for preprocedural laboratory examination (principal)
CPT/HCPCS: 80053; 85025

== ENCOUNTER → 2019-06-01 | Outpatient (CLI) | payer OTHER ==
--- NOTE | 2019-06-01 16:20 | P.HPBAR ---
Bariatric H&P - History & Physicial H&P Date: 06/01/19 History & Physicial: Visit/CC: Patient initial contact: Initial weight: 213.733 kg Initial weight in pounds: Height: Initial BMI: Last weight: Current weight: Current weight in pounds: Current BMI: [place] body weight (based on NIH guidelines): Excess body weight loss: The patient is a 34 year-old M who presents for Bariatric Assessment. Patient presents today for pre-surgical consultation. He scheduled for sleeve gas trectomy . He has lost a pound since starting liquid diet. Past Medical History Past Medical History: Diabetes Mellitus, Sleep Apnea/CPAP/BIPAP Additional Past Medical History / Comment(s): Type 2 DM, diverticular dx, hx of left colon fistula abscess, Hx thorocentesis (November 2016)., mild sleep apnea ( dx 10 yrs ago-no machine has sleep study scheduled for 11/04/18)., History of Any Multi-Drug Resistant Organisms: None Reported Past Surgical History: No Surgical Hx Reported, Hernia Repair Additional Past Surgical History / Comment(s): PICC LINE, THORACENTESIS, 05/03/17: "Low anterior resection takedown splenic flecture omenectomy" by Dr. Carrillo. Past Anesthesia/Blood Transfusion Reactions: No Reported Reaction Additional Past Anesthesia/Blood Transfusion Reaction / Comm: PT HAS NEVER RECEIVED ANESTHESIA Past Psychological History: ADD/ADHD Smoking Status: Former smoker Past Alcohol Use History: None Reported Additional Past Alcohol Use History / Comment(s): STARTED SMOKING AGE 17- quit July of 2018. Past Drug Use History: Marijuana Additional Drug Use History / Comment(s): occasional use, instructed not to use 24 hrs prior to Surgery. Pt states Medical Card. - Past Family History Mother Family Medical History: No Reported History Surgical - Exam - General well developed, well nourished, no distress - Eyes PERRL - ENT normal pinna - Respiratory normal expansion - Cardiovascular Rhythm: regular - Abdomen Abdomen: non tender Bariatric Assessment & Plan Plan: Morbid obesity with BMI 64. Patient will be scheduled for sleeve gastrectomy clear. We went over the risks and benefits of procedure. He has an excellent understanding of gastric staple line disruption bleeding or scarring. Bariatric Checklist Checklist: Plan: Checklist: EGD: 1. Hiatal hernia: 2. H. Pylori: HgbA1c: Vitamin D: Smoking: Former smoker Primary care physician referral: Dr. Jassi Ivory ([place]) T: [phone] Psychiatry clearance: Cardiology clearance: Sleep study: Diet journal: VTE risk score: VTE risk level: Rehab needs at discharge:
[2019-06-03 11:27] VITALS: BP 145/87; PULSE 87; TEMP 98.1; BMI 61.2
== END | disposition home or self-care (01) ==
LOC: BARWHC3 13:57
PROVIDERS: ATTEND Surgery
DX: E66.01 Morbid (severe) obesity due to excess calories (principal); Z68.44 Body mass index [BMI] 60.0-69.9, adult; Z87.891 Personal history of nicotine dependence
CPT/HCPCS: 99211

== ENCOUNTER 2019-06-08 09:45 | Inpatient (IN) | payer OTHER ==
[~2019-06-08 09:45] MED LIST changes: +DEXAMETHASONE SOD PHOSPHATE 10 MG/ML 1 ML VIAL IV ONE; -LACTATED RINGERS 1,000 ML IV SCH; +LIDOCAINE 1% 20 ML VIAL (10MG/ML) FOR IV START INTRADERMA PRN; +ONDANSETRON 4 MG/2 ML VIAL IVP ONE; +SCOPOLAMINE 1.5MG/72HR PATCH TRANSDERM ONE; +ceFAZolin 3 GM in SODIUM CHLORIDE 0.9% 100 ML IVPB ONE
--- NOTE | 2019-06-08 10:25 | P.GSHP ---
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 Patient is morbidly obese. BMI 61. He is aware the risks of surgery including conversion to the open procedure injury to the stomach liver spleen, is also aware the risk of gastric staple line disruption, bleeding or scarring. Past Medical History Past Medical History: Diabetes Mellitus, Sleep Apnea/CPAP/BIPAP Additional Past Medical History / Comment(s): hx diverticulitis, History of Any Multi-Drug Resistant Organisms: None Reported Past Surgical History: Bowel Resection, Hernia Repair Additional Past Surgical History / Comment(s): PICC LINE/later removed, THORACENTESIS Past Anesthesia/Blood Transfusion Reactions: No Reported Reaction Additional Past Anesthesia/Blood Transfusion Reaction / Comment(s): . Smoking Status: Former smoker - Past Family History Mother Family Medical History: No Reported History Medications and Allergies Home Medications Medication Instructions Recorded Confirmed Type Sertraline [Zoloft] 150 mg PO HS 03/02/19 06/03/19 History Ascorbic Acid [Vitamin C] 1,000 mg PO DAILY 06/03/19 06/03/19 History Multivitamins, Thera [Multivitamin 1 tab PO DAILY 06/03/19 06/03/19 History (formulary)] metFORMIN HCL 1,000 mg PO BID 06/03/19 06/03/19 History Allergies Allergy/AdvReac Type Severity Reaction Status Date / Time No Known Allergies Allergy Verified 06/03/19 14:00 Surgical - Exam - General well developed, well nourished, no distress - Eyes PERRL - ENT normal pinna - Neck no masses - Respiratory normal expansion - Cardiovascular Rhythm: regular - Abdomen Midline laparotomy scar Abdomen: soft Assessment and Plan Assessment: RBC, BMI 61. Patient will undergo laparoscopic sleeve inserted. Patient had a risk of possible adhesions from his previous low anterior section and incisional hernia repair.
[2019-06-08] MEDS: LACTATED RINGERS 1,000 ML IV SCH (11:09)
[2019-06-08] MEDS: ENOXAPARIN 40 MG/0.4 ML SYRINGE SQ ONE ×2 (11:10→11:45)
[2019-06-08 11:13] LABS: Glucose,Whole Blood 91 mg/dL (75-99)
[2019-06-08] MEDS ORDERED: SUCCINYLCHOLINE CHLORIDE VIAL 200 MG/10 ML VIAL IV ONE (11:51)
[2019-06-08] MEDS ORDERED: PROPOFOL 10 MG/ML 20 ML VIAL IV ONE (11:51)
[2019-06-08] MEDS ORDERED: ROCURONIUM BROMIDE 10 MG/ML 10 ML VIAL IV ONE (11:51)
[2019-06-08] MEDS ORDERED: KETOROLAC 30 MG/ML 1 ML VIAL ONE (11:51)
[2019-06-08] MEDS ORDERED: GLYCOPYRROLATE 0.2 MG/ML 2 ML VIAL ONE (11:51)
[2019-06-08] MEDS ORDERED: fentaNYL (PF) 50 MCG/ML 2 ML AMP ONE (11:51)
[2019-06-08] MEDS ORDERED: NEOSTIGMINE 1 MG/ML 10 ML VIAL ONE (11:51)
[2019-06-08] MEDS ORDERED: LIDOCAINE 1% INJ 10MG/ML (20 ML MDV) ONE (11:51)
[2019-06-08] MEDS ORDERED: MIDAZOLAM 2 MG/2 ML VIAL ONE (11:51)
[2019-06-08] MEDS ORDERED: LIDOCAINE 1%-EPI 1:100,000 20 ML VIAL SQ ONE ×2 (12:40→13:18)
[2019-06-08] MEDS ORDERED: LACTATED RINGERS 1,000 ML IV ONE (13:24)
[2019-06-08] MEDS ORDERED: diphenhydrAMINE 50 MG/ML 1 ML VIAL IVP PRN (13:39)
[2019-06-08] MEDS ORDERED: NALOXONE 0.4 MG/ML 1 ML VIAL IV PRN (13:39)
[2019-06-08] MEDS ORDERED: SIMETHICONE 40 MG/0.6 ML DROPS 2,000 MG/30 ML BOTTLE PO PRN (13:39)
[2019-06-08] MEDS ORDERED: HYDROcodone/APAP 15 ML SOLUTION PO PRN (13:39)
[2019-06-08] MEDS ORDERED: HYOSCYAMINE ORAL DROPS 1.875 MG/15 ML BOTTLE PO PRN (13:39)
[2019-06-08] MEDS ORDERED: ONDANSETRON 4 MG/2 ML VIAL IVP ONE (13:50)
--- NOTE | 2019-06-08 13:53 | P.OP ---
Date of Procedure: 06/08/19 Preoperative Diagnosis: Morbid obesity Postoperative Diagnosis: Morbid obesity Procedure(s) Performed: Laparoscopic sleeve gastrectomy Anesthesia: ALEXEI Surgeon: Benson Carrillo Estimated Blood Loss (ml): 10 Pathology: other (Stomach) Condition: stable Disposition: PACU Description of Procedure: The patient was placed on the operating room table in the supine position. She received general anesthesia and then was placed in dorsal lithotomy position. Her abdomen was prepped and draped in sterile fashion. The skin incision sites were anesthetized 1% local Xylocaine. And then the skin was incised with an 11 blade in the left lateral position. Using a blade less trocar under direct visualization the peritoneal cavity was entered. The abdomen was insufflated and then a 5 mm laparoscope was placed into the peritoneal cavity. A 5 mm trocar was placed in the right epigastric, and right lateral position. A 15 mm trocar was placed in the supra-umbilical position and another 5 mm trocar was placed in the left lateral position. The left lateral lobe of the liver was retracted. The stomach was visualized. The greater curvature of the stomach was then dissected using the Harmonic scissors. The dissection occurred approximately 5 cm from the pylorus to the level of the left camila. There was no hiatal hernia seen. At this point a 40-[place] bougie dilator was placed the oropharynx and passed into the esophagus and into the stomach by the CAT SCAN TECH. The sleeve gastrectomy was performed by using the powered echelon stapler with a seam guard buttress material. Sequential firings of the stapler were performed. The gastric remnant was then brought out through the 15 mm trocar site. The dilator was withdrawn. And a orogastric tube was replaced into the stomach. The stomach was insufflated with 200 mL of methylene blue normal saline. There was no evidence of extravasation. The abdomen was irrigated there is no bleeding seen. The Grayson-Michelle device was used to close the 15 mm trocar with 0 Vicryl. Skin was closed with interrupted 3-0 Monocryl sutures once the trochars withdrawn. Dermabond dressing was applied. Patient was sent to recovery in stable condition.
[2019-06-08] MEDS: diphenhydrAMINE 50 MG/ML 1 ML VIAL IVP ONE ×2 (13:59→14:50)
[2019-06-08] MEDS ORDERED: PROMETHAZINE INJ 25 MG/ML 1 ML VIAL IVPB ONE (14:15)
[2019-06-08] MEDS: HYDROmorphone 0.5 MG/0.5 ML SYRINGE IVP PRN ×2 (14:30→14:40)
[2019-06-08 14:50] LABS: Glucose,Whole Blood 193 mg/dL (75-99)
[2019-06-08] MEDS: 0.9% NACL WITH KCL 20 MEQ/L 1,000 ML IV SCH ×2 (15:13→20:16)
[2019-06-08] MEDS: ONDANSETRON 4 MG/2 ML VIAL IVP PRN ×2 (16:16→23:21)
[2019-06-08] MEDS: ALBUTEROL NEBULIZED 2.5 MG/3 ML INHALATION SCH ×2 (16:35→20:35)
[2019-06-08] MEDS: HYDROmorphone 1 MG/ML 1 ML SYRINGE IVP PRN ×2 (16:44→20:10)
[2019-06-08] MEDS: KETOROLAC 30 MG/ML 1 ML VIAL IVP SCH ×2 (17:59→23:21)
[2019-06-08] MEDS: ENOXAPARIN 60 MG/0.6 ML SYRINGE SQ SCH (23:22)
[2019-06-09] MEDS: HYDROmorphone 1 MG/ML 1 ML SYRINGE IVP PRN ×6 (01:50→22:17)
[2019-06-09] MEDS: 0.9% NACL WITH KCL 20 MEQ/L 1,000 ML IV SCH ×3 (03:16→15:58)
[2019-06-09] MEDS: KETOROLAC 30 MG/ML 1 ML VIAL IVP SCH ×3 (05:34→18:29)
[2019-06-09] MEDS: LACTATED RINGERS 1,000 ML IV SCH (06:26)
[2019-06-09 07:14] LABS: Basophils % (A) 0 %; Eosinophils % (A) 0 %; HCT 42.3 % (39.0-53.0); HGB 13.9 gm/dL (13.0-17.5); Lymphocytes # (A) 1.8 k/uL (1.0-4.8); Lymphocytes % (A) 13 %; MCH 30.3 pg (25.0-35.0); MCHC 32.8 g/dL (31.0-37.0); MCV 92.3 fL (80.0-100.0); Mean Platelet Volume 8.7; Monocytes # (A) 0.5 k/uL (0-1.0); Monocytes % (A) 4 %; Neutrophils # (A) 11.2 k/uL (1.3-7.7); Neutrophils % (A) 82 %; Platelet Count 218 k/uL (150-450); RBC 4.58 m/uL (4.30-5.90); RDW 13.7 % (11.5-15.5); WBC 13.8 k/uL (3.8-10.6)
[2019-06-09 07:19] LABS: Glucose,Whole Blood 87 mg/dL (75-99)
[2019-06-09 07:28] LABS: African American GFR (CKD) >90 (>60 ml/min/1.73 sqM); Anion Gap 10 mmol/L; Blood Urea Nitrogen 8 mg/dL (9-20); Calcium 8.7 mg/dL (8.4-10.2); Carbon Dioxide 27 mmol/L (22-30); Chloride 106 mmol/L (98-107); Magnesium 2.2 mg/dL (1.6-2.3); Non-African American GFR(CKD) >90 (>60 ml/min/1.73 sqM); Phosphorus 3.2 mg/dL (2.5-4.5); Potassium 4.5 mmol/L (3.5-5.1); Sodium 143 mmol/L (137-145)
[2019-06-09] MEDS: INSULIN ASPART (NovoLOG) 100 UNIT/ML VIAL SQ SCH ×4 (07:36→21:12)
[2019-06-09] MEDS: PANTOPRAZOLE 40 MG/10 ML VIAL IV SCH (08:04)
[2019-06-09] MEDS: ALBUTEROL NEBULIZED 2.5 MG/3 ML INHALATION SCH ×4 (08:51→20:15)
--- NOTE | 2019-06-09 09:52 | FL ---
EXAMINATION TYPE: FL UGI DATE OF EXAM: 06/09/2019 LIMITED UGI: CLINICAL HISTORY: Morbid Obesity, gastric sleeve surgery yesterday. TECHNIQUE: Limited esophagram is performed utilizing 10 oz of Isovue-370. A total of 66 seconds of fluoroscopic time was utilized during procedure. 38 spot images are saved to PACS. COMPARISON: CTA chest May 06, 2017. FINDINGS: Exam noted slightly suboptimal due to patient's large body habitus making difficulty visual izing contrast. The patient swallowed contrast without difficulty or delay. Esophageal peristalsis a nd motility are within normal limits. There is good flow of contrast along the diaphragmatic hiatus into proximal stomach and subsequent mild delay in flow into gastric sleeve through the proximal anas tomosis. There is mild delay in flow from distal sleeve into pylorus and duodenal sweep or distal zoila stomosis. Patient remains asymptomatic. There is no evidence of contrast extravasation to suggest maci k. IMPRESSION: Suboptimal study without evidence of leak or significant obstruction status post recent g astric sleeve surgery.
[2019-06-09] MEDS: ENOXAPARIN 60 MG/0.6 ML SYRINGE SQ SCH (11:21)
[2019-06-09 11:53] VITALS: BMI 60.2
--- NOTE | 2019-06-09 12:14 | P.PN ---
Progress Note - Text Progress Note Date: 06/09/19 The patient's postoperative day 1 from sleeve gastrectomy. He is feeling quite well. He states his pain is 810. His esophagram performed today shows no evidence of leak or obstruction. On exam his vital signs are stable. His abdomen soft. Incision sites clean and intact. Senselessly district. Patient will start clear liquid diet. We and 3 discharge home tomorrow.
[2019-06-09 12:29] LABS: Glucose,Whole Blood 95 mg/dL (75-99)
[2019-06-09 17:20] LABS: Glucose,Whole Blood 100 mg/dL (75-99)
[2019-06-09 21:01] LABS: Glucose,Whole Blood 111 mg/dL (75-99)
--- NOTE | 2019-06-09 22:41 | P.CONS ---
History of Present Illness - History of Present Illness This is a pleasant 34 years old male with past medical history of diabetes me llitus, sleep apnea on CPAP, depression. He was admitted for treatment of his morbid obesity, he is status post-laparoscopic sleeve gastrectomy. Today is postop day #1. pt is lying in bed not in pain , he was started on clear diet , his metformin on hold for now and his sugar number are controlled. he passed the esophagogram , no other specific complaint and pt looks pleasant Vitals are stable. Sugar is 193. Review of Systems CONSTITUTIONAL: No fever, no malaise, no fatigue. HEENT: No recent visual problems or hearing problems. Denied any sore throat. CARDIOVASCULAR: No orthopnea, PND, no palpitations, no syncope. PULMONARY: No shortness of breath, no cough, no hemoptysis. GASTROINTESTINAL: No diarrhea, no nausea, no vomiting, no abdominal pain. Nor moactive bowel sounds. NEUROLOGICAL: No headaches, no weakness, no numbness. HEMATOLOGICAL: Denies any bleeding or petechiae. GENITOURINARY: Denies any burning micturition, frequency, or urgency. MUSCULOSKELETAL/RHEUMATOLOGICAL: Denies any joint pain, swelling, or any muscle pain. ENDOCRINE: Denies any polyuria or polydipsia. Past Medical History Past Medical History: Diabetes Mellitus, Sleep Apnea/CPAP/BIPAP Additional Past Medical History / Comment(s): hx diverticulitis, History of Any Multi-Drug Resistant Organisms: None Reported Past Surgical History: Bowel Resection, Hernia Repair Additional Past Surgical History / Comment(s): PICC LINE/later removed, THORACENTESIS Past Anesthesia/Blood Transfusion Reactions: No Reported Reaction Additional Past Anesthesia/Blood Transfusion Reaction / Comm: . Past Psychological History: ADD/ADHD, Depression Smoking Status: Former smoker Past Alcohol Use History: None Reported Additional Past Alcohol Use History / Comment(s): STARTED SMOKING AGE 17- quit July of 2018. < 1 PPD Past Drug Use History: Marijuana Additional Drug Use History / Comment(s): .last used 2 weeks ago - Past Family History Mother Family Medical History: No Reported History Medications and Allergies Home Medications Medication Instructions Recorded Confirmed Type Sertraline [Zoloft] 150 mg PO HS 03/02/19 06/03/19 History Ascorbic Acid [Vitamin C] 1,000 mg PO DAILY 06/03/19 06/03/19 History Multivitamins, Thera [Multivitamin 1 tab PO DAILY 06/03/19 06/03/19 History (formulary)] metFORMIN HCL 1,000 mg PO BID 06/03/19 06/03/19 History Bisacodyl [Dulcolax] 5 mg PO DAILY PRN #10 tablet. 06/09/19 Rx HYDROcodone/APAP 5-325MG [[place] 1 tab PO Q6HR PRN #10 tab 06/09/19 Rx 5-325] Omeprazole 40 mg PO DAILY #30 capsule. 06/09/19 Rx Ondansetron Odt [Zofran Odt] 4 mg PO Q8HR PRN #9 tab 06/09/19 Rx Simethicone 40 mg/0.6 ml Drops 40 mg PO PCHS PRN #30 ml 06/09/19 Rx [Mylicon Drops] Allergies Allergy/AdvReac Type Severity Reaction Status Date / Time No Known Allergies Allergy Verified 06/03/19 14:00 Physical Exam Vitals: Vital Signs Temp Pulse Resp BP Pulse Ox 06/09/19 03:39 18 06/09/19 01:52 98.4 F 68 18 148/83 96 06/09/19 00:55 95 06/09/19 00:00 18 06/08/19 20:35 94 L 06/08/19 19:46 97.5 F L 79 18 129/75 91 L 06/08/19 16:31 94 L 06/08/19 16:00 82 176/96 06/08/19 15:45 86 131/72 06/08/19 15:30 74 180/105 97 06/08/19 15:15 97.5 F L 85 16 173/96 95 06/08/19 14:46 87 18 156/66 91 L 06/08/19 14:30 81 18 164/82 95 06/08/19 14:15 83 20 168/81 97 06/08/19 14:00 90 20 162/88 97 06/08/19 13:45 97.7 F 101 H 20 151/102 97 06/08/19 10:34 98.2 F 78 20 118/58 93 L Intake and Output 06/08/19 06/08/19 06/09/19 14:59 22:59 06:59 Intake Total 1700 Output Total 10 Balance 1690 Intake: IV 1700 Output: Estimated Blood Loss 10 Other: Voiding Method Toilet # Voids 1 Weight 196.1 kg 196.1 kg GENERAL: The patient is alert and oriented x3, not in any acute distress. Well developed, well nourished. HEENT: Pupils are round and equally reacting to light. EOMI. No scleral icterus. No conjunctival pallor. Normocephalic, atraumatic. No pharyngeal erythema. No thyromegaly. CARDIOVASCULAR: S1 and S2 present. No murmurs, rubs, or gallops. PULMONARY: Chest is clear to auscultation, no wheezing or crackles. -ABDOMEN: Soft, nontender, nondistended, normoactive bowel sounds. No palpable organomegaly. surgical site wounds are closed. MUSCULOSKELETAL: No joint swelling or deformity. EXTREMITIES: No cyanosis, clubbing, or pedal edema. NEUROLOGICAL: Gross neurological examination did not reveal any focal deficits. SKIN: No rashes. No petechiae Results CBC & Chem 7: 06/09/19 06:40 06/09/19 06:40 Labs: Abnormal Lab Results - Last 24 Hours (Table) 06/08/19 Range/Units 14:49 POC Glucose (mg/dL) 193 H (75-99) mg/dL Assessment and Plan Assessment: Morbid obesity, BMI 61. status post laparoscopic sleeve gastrectomy Diabetes mellitus Sleep apnea Depression, not active tissue Plan: This is a pleasant 34 years old male who presents for elective surgery for his obesity. Monitor sugar. Resume metformin Labs and medication were reviewed.. Continue same treatment. Continue with symptomatic treatment. Resume home medication. Monitor lytes and vitals. DVT and GI prophylaxis. Further recommendations of the clinical course of the patient DVT prophylaxis: Subcutaneous heparin GI Prophylaxis: Pepcid Prognosis is guarded
[2019-06-10] MEDS: KETOROLAC 30 MG/ML 1 ML VIAL IVP SCH ×3 (01:26→11:20)
[2019-06-10] MEDS: ENOXAPARIN 60 MG/0.6 ML SYRINGE SQ SCH (01:27)
[2019-06-10] MEDS: 0.9% NACL WITH KCL 20 MEQ/L 1,000 ML IV SCH (05:34)
[2019-06-10] MEDS: LACTATED RINGERS 1,000 ML IV SCH (05:34)
[2019-06-10 07:00] LABS: Basophils % (A) 0 %; Eosinophils # (A) 0.1 k/uL (0-0.7); Eosinophils % (A) 2 %; HCT 38.9 % (39.0-53.0); HGB 12.5 gm/dL (13.0-17.5); Lymphocytes # (A) 2.1 k/uL (1.0-4.8); Lymphocytes % (A) 26 %; MCH 29.7 pg (25.0-35.0); MCHC 32.2 g/dL (31.0-37.0); MCV 92.3 fL (80.0-100.0); Mean Platelet Volume 8.7; Monocytes # (A) 0.4 k/uL (0-1.0); Monocytes % (A) 5 %; Neutrophils # (A) 5.5 k/uL (1.3-7.7); Neutrophils % (A) 67 %; Platelet Count 163 k/uL (150-450); RBC 4.22 m/uL (4.30-5.90); RDW 14.2 % (11.5-15.5); WBC 8.3 k/uL (3.8-10.6)
[2019-06-10 07:11] LABS: Glucose,Whole Blood 85 mg/dL (75-99)
[2019-06-10] MEDS: INSULIN ASPART (NovoLOG) 100 UNIT/ML VIAL SQ SCH (07:14)
[2019-06-10 08:13] VITALS: BP 126/73; PULSE 69; RESP 12; TEMP 98.2
[2019-06-10] MEDS: PANTOPRAZOLE 40 MG/10 ML VIAL IV SCH (08:42)
--- NOTE | 2019-06-10 08:49 | P.PN ---
Subjective This is a pleasant 34 years old male with past medical history of diabetes mellitus, sleep apnea on CPAP, depression. He was admitted for treatment of his morbid obesity, he is status post-laparoscopic sleeve gastrectomy. Today is postop day #2. pt is lying in bed not in pain , he was started on diet and tolerated that well, No bowel movement or passing gases. No nausea vomiting. his metformin on hold for now and his sugar number are controlled. he passed the esophagogram , no other specific complaint and pt looks pleasant. Vitals are stable. Sugar is running between 85-111, patient is not taking his metformin dose. His WBC is back to normal at 8.3. Objective - Vital Signs Vital signs: Vital Signs Temp 98.2 F 06/10/19 07:00 Pulse 69 06/10/19 07:00 Resp 12 06/10/19 07:00 BP 126/73 06/10/19 07:00 Pulse Ox 97 06/10/19 07:00 Intake & Output 06/09/19 06/10/19 06/10/19 18:59 06:59 18:59 Weight 196.1 kg Other: Voiding Method Toilet # Voids 1 2 - Exam -GENERAL: The patient is alert and oriented x3, not in any acute distress.obese HEENT: Pupils are round and equally reacting to light. EOMI. No scleral icterus. No conjunctival pallor. Normocephalic, atraumatic. No pharyngeal erythema. No thyromegaly. CARDIOVASCULAR: S1 and S2 present. No murmurs, rubs, or gallops. PULMONARY: Chest is clear to auscultation, no wheezing or crackles. -ABDOMEN: Soft, nontender, nondistended, normoactive bowel sounds. No palpable organomegaly. surgical site wounds are closed. MUSCULOSKELETAL: No joint swelling or deformity. EXTREMITIES: No cyanosis, clubbing, or pedal edema. NEUROLOGICAL: Gross neurological examination did not reveal any focal deficits. SKIN: No rashes. No petechiae - Labs CBC & Chem 7: 06/10/19 06:05 06/09/19 06:40 Labs: Abnormal Lab Results - Last 24 Hours (Table) 06/09/19 06/09/19 06/10/19 Range/Units 17:17 20:50 06:05 RBC 4.22 L (4.30-5.90) m/uL Hgb 12.5 L (13.0-17.5) gm/dL Hct 38.9 L (39.0-53.0) % POC Glucose (mg/dL) 100 H 111 H (75-99) mg/dL Assessment and Plan Assessment: Morbid obesity, BMI 61. status post laparoscopic sleeve gastrectomy Diabetes mellitus Sleep apnea Depression, not active tissue Plan: This is a pleasant 34 years old male who presents for elective surgery for his obesity. Monitor sugar. Resume metformin Labs and medication were reviewed.. Continue same treatment. Continue with symptomatic treatment. Resume home medication. Monitor lytes and vitals. DVT and GI prophylaxis. Further recommendations of the clinical course of the patient DVT prophylaxis: Subcutaneous heparin GI Prophylaxis: Pepcid Patient is counseled to follow up with his PCP in one week, and he agrees. Also he was instructed not used metformin and to keep checking his sugar 4 times a day before each meal and at bedtime and bringing the #is and he agrees
[2019-06-10] MEDS: ALBUTEROL NEBULIZED 2.5 MG/3 ML INHALATION SCH (09:18)
--- NOTE | 2019-06-10 09:51 | P.DS ---
Providers Date of admission: 06/08/19 09:45 Expected date of discharge: 06/10/19 Attending physician: Benson Carrillo Consults: 06/08/19 13:39 Consult Physician Routine Consulting Provider: Cherelle Salmeron Consult Reason/Comments: med manage Do you want consulting provider notified?: Yes Primary care physician: [facility] Course: 34-year-old male who underwent laparoscopic sleeve gastrectomy with Dr. Carrillo. Patient is doing well postoperatively without any immediate complications. Esophagram is negative for leak or obstruction. He is tolerating clear liquid diet. He is stable for discharge home today. Dr. Carrillo would like patient to be discharged on Lovenox 40 mg subcu daily for 5 days. Please see EMR for further hospital course details. Discharge diagnosis Morbid obesity, status post sleeve gastrectomy Nurse practitioner note has been reviewed by physician. Signing provider agrees with the documented findings, assessment, and plan of care. Patient Condition at Discharge: Stable Plan - Discharge Summary Discharge Rx Participant: Yes New Discharge Prescriptions: New Bisacodyl [Dulcolax] 5 mg PO DAILY PRN #10 tablet. PRN Reason: Constipation Simethicone 40 mg/0.6 ml Drops [Mylicon Drops] 40 mg PO PCHS PRN #30 ml PRN Reason: Gas Omeprazole 40 mg PO DAILY #30 capsule. Ondansetron Odt [Zofran Odt] 4 mg PO Q8HR PRN #9 tab PRN Reason: Nausea HYDROcodone/APAP 5-325MG [[place] 5-325] 1 tab PO Q6HR PRN #10 tab PRN Reason: Pain Enoxaparin [Lovenox] 40 mg SQ DAILY #5 syringe Continue Sertraline [Zoloft] 150 mg PO HS Multivitamins, Thera [Multivitamin (formulary)] 1 tab PO DAILY Ascorbic Acid [Vitamin C] 1,000 mg PO DAILY Discontinued metFORMIN HCL 1,000 mg PO BID Discharge Medication List Sertraline [Zoloft] 150 mg PO HS 03/02/19 [History] Ascorbic Acid [Vitamin C] 1,000 mg PO DAILY 06/03/19 [History] Multivitamins, Thera [Multivitamin (formulary)] 1 tab PO DAILY 06/03/19 [History] Bisacodyl [Dulcolax] 5 mg PO DAILY PRN #10 tablet. 06/09/19 [Rx] HYDROcodone/APAP 5-325MG [[place] 5-325] 1 tab PO Q6HR PRN #10 tab 06/09/19 [Rx] Omeprazole 40 mg PO DAILY #30 capsule. 06/09/19 [Rx] Ondansetron Odt [Zofran Odt] 4 mg PO Q8HR PRN #9 tab 06/09/19 [Rx] Simethicone 40 mg/0.6 ml Drops [Mylicon Drops] 40 mg PO PCHS PRN #30 ml 06/09/19 [Rx] Enoxaparin [Lovenox] 40 mg SQ DAILY #5 syringe 06/10/19 [Rx] Follow up [facility]Ref[place] - 06/15/19 1:50 pm
== END 2019-06-10 11:31 | disposition home or self-care (01) | DRG 621 ==
LOC: 2ORMAIN 09:45 → 4SSUR 13:30
PROVIDERS: ADMIT Surgery; ATTEND Surgery
PROC: 0DB64Z3 Excision of Stomach, Percutaneous Endoscopic Approach, Vertical (ICD-10-PCS; principal; 2019-06-08 11:10)
DX: E66.01 Morbid (severe) obesity due to excess calories (principal); F32.9 Major depressive disorder, single episode, unspecified; E11.9 Type 2 diabetes mellitus without complications; G47.30 Sleep apnea, unspecified; Z68.44 Body mass index [BMI] 60.0-69.9, adult; Z79.84 Long term (current) use of oral hypoglycemic drugs; Z87.891 Personal history of nicotine dependence; Z99.89 Dependence on other enabling machines and devices
CPT/HCPCS: 74240; 80051; 82310; 82565; 83735; 84100; 84132; 84520; 85025; 88307; 94640; 94760; 94762

== ENCOUNTER → 2019-06-12 | Outpatient (CLI) | payer OTHER ==
[2019-06-12 10:52] VITALS: BP 149/81; PULSE 83; RESP 16; TEMP 98.3; BMI 60.0
== END | disposition home or self-care (01) ==
LOC: BARWHC3 09:54
PROVIDERS: ATTEND Surgery
DX: E66.01 Morbid (severe) obesity due to excess calories (principal); Z68.44 Body mass index [BMI] 60.0-69.9, adult; Z98.84 Bariatric surgery status
CPT/HCPCS: 99211

== ENCOUNTER → 2019-06-15 | Outpatient (CLI) | payer OTHER ==
[2019-06-15 14:00] VITALS: BP 143/77; PULSE 84; RESP 16; TEMP 97.7; BMI 59.0
--- NOTE | 2019-06-15 16:10 | P.HPBAR ---
Bariatric H&P - History & Physicial H&P Date: 06/15/19 History & Physicial: Visit/CC: post sleeve Patient initial contact: Initial weight: 213.733 kg Initial weight in pounds: 471.20 Height: 5 ft 11 in Initial BMI: 65.7 Last weight: Current weight: 191.87 kg Current weight in pounds: 423.00 Current BMI: 59.0 [place] body weight (based on NIH guidelines): 78.018 kg Excess body weight loss: 16.1% The patient is a 34 year-old M who presents for Bariatric Assessment. Patient presents today for sleeve gastrectomy fall. He is doing quite well. He has no real complaints. He is approximately 1 week postop. Past Medical History Past Medical History: Diabetes Mellitus, Sleep Apnea/CPAP/BIPAP Additional Past Medical History / Comment(s): hx diverticulitis, History of Any Multi-Drug Resistant Organisms: None Reported Past Surgical History: Bariatric Surgery, Bowel Resection, Hernia Repair Additional Past Surgical History / Comment(s): PICC LINE/later removed, THORACENTESIS Gastric Sleeve on 06/08/19. Past Anesthesia/Blood Transfusion Reactions: No Reported Reaction Additional Past Anesthesia/Blood Transfusion Reaction / Comm: . Past Psychological History: ADD/ADHD, Depression Smoking Status: Former smoker Past Alcohol Use History: None Reported Additional Past Alcohol Use History / Comment(s): STARTED SMOKING AGE 17- quit July of 2018. < 1 PPD Past Drug Use History: Marijuana Additional Drug Use History / Comment(s): .last used 2 weeks ago - Past Family History Mother Family Medical History: No Reported History Surgical - Exam Vital Signs Temp Pulse Resp BP 97.7 F 84 16 143/77 06/15/19 13:54 06/15/19 13:54 06/15/19 13:54 06/15/19 13:54 - General well developed, well nourished, no distress - Eyes PERRL - ENT normal pinna - Neck no masses - Respiratory normal expansion - Cardiovascular Rhythm: regular - Abdomen Abdomen: soft, non tender Bariatric Assessment & Plan Plan: Status post sleeve yesterday. Patient did quite well. He'll follow-up in 2 weeks. Bariatric Checklist Checklist: Plan: Checklist: EGD: 1. Hiatal hernia: 2. H. Pylori: HgbA1c: Vitamin D: Smoking: Former smoker Primary care physician referral: Dr. Jassi Ivory ([place]) T: [phone] Psychiatry clearance: Cardiology clearance: Sleep study: Diet journal: VTE risk score: VTE risk level: Rehab needs at discharge:
== END | disposition home or self-care (01) ==
LOC: BARWHC3 13:46
PROVIDERS: ATTEND Surgery
DX: Z48.815 Encounter for surgical aftercare following surgery on the digestive system (principal); Z87.891 Personal history of nicotine dependence; Z98.84 Bariatric surgery status
CPT/HCPCS: 97803; G0463; 99211

== ENCOUNTER → 2019-06-29 | Outpatient (CLI) | payer OTHER ==
[2019-06-29 13:38] VITALS: BMI 56.0
[2019-06-29 13:47] VITALS: BP 119/75; PULSE 76; TEMP 97.6
--- NOTE | 2019-07-06 14:59 | P.HPBAR ---
Bariatric H&P - History & Physicial H&P Date: 06/29/19 History & Physicial: Visit/CC: one month followup Patient initial contact: Initial weight: 213.733 kg Initial weight in pounds: 471.20 Height: 5 ft 11 in Initial BMI: 65.7 Last weight: Current weight: 182.389 kg Current weight in pounds: 402.10 Current BMI: 56.0 [place] body weight (based on NIH guidelines): 78.018 kg Excess body weight loss: 23.0% The patient is a 34 year-old M who presents for Bariatric Assessment. Patient is status post sleeve gastrectomy. He's had excellent weight loss. He's had some mild GERD. Past Medical History Past Medical History: Diabetes Mellitus, Sleep Apnea/CPAP/BIPAP Additional Past Medical History / Comment(s): hx diverticulitis, History of Any Multi-Drug Resistant Organisms: None Reported Past Surgical History: Bariatric Surgery, Bowel Resection, Hernia Repair Additional Past Surgical History / Comment(s): PICC LINE/later removed, THORACENTESIS Gastric Sleeve on 06/08/19. Past Anesthesia/Blood Transfusion Reactions: No Reported Reaction Additional Past Anesthesia/Blood Transfusion Reaction / Comm: . Past Psychological History: ADD/ADHD, Depression Smoking Status: Former smoker Past Alcohol Use History: None Reported Additional Past Alcohol Use History / Comment(s): STARTED SMOKING AGE 17- quit July of 2018. < 1 PPD Past Drug Use History: Marijuana Additional Drug Use History / Comment(s): .last used 2 weeks ago - Past Family History Mother Family Medical History: No Reported History Surgical - Exam Vital Signs Temp Pulse BP 97.6 F 76 119/75 06/29/19 13:45 06/29/19 13:45 06/29/19 13:45 - General well developed, well nourished, no distress - Eyes PERRL - ENT normal pinna - Neck no masses - Respiratory normal expansion - Cardiovascular Rhythm: regular - Abdomen Abdomen: soft, non tender Bariatric Assessment & Plan Plan: Status post sleeve gastrectomy. Patient still quite well. His GERD is minimal and will be observed. Bariatric Checklist Checklist: Plan: Checklist: EGD: 1. Hiatal hernia: 2. H. Pylori: HgbA1c: Vitamin D: Smoking: Former smoker Primary care physician referral: Dr. Jassi Ivory ([place]) T: [phone] Psychiatry clearance: Cardiology clearance: Sleep study: Diet journal: VTE risk score: VTE risk level: Rehab needs at discharge:
== END | disposition home or self-care (01) ==
LOC: BARWHC3 12:44
PROVIDERS: ATTEND Surgery
DX: Z48.815 Encounter for surgical aftercare following surgery on the digestive system (principal); K21.9 Gastro-esophageal reflux disease without esophagitis; Z87.891 Personal history of nicotine dependence; E66.01 Morbid (severe) obesity due to excess calories; Z98.84 Bariatric surgery status; Z68.43 Body mass index [BMI] 50.0-59.9, adult
CPT/HCPCS: 97803; G0463; 99211

== ENCOUNTER → 2019-07-22 | Outpatient (CLI) | payer OTHER ==
[2019-07-22 14:35] LABS: HCT 47.3 % (39.0-53.0); HGB 15.4 gm/dL (13.0-17.5); MCHC 32.5 g/dL (31.0-37.0); MCV 92.3 fL (80.0-100.0); Mean Platelet Volume 10.8; Platelet Count 186 k/uL (150-450); RBC 5.12 m/uL (4.30-5.90); RDW 13.7 % (11.5-15.5); WBC 13.4 k/uL (3.8-10.6)
[2019-07-22 20:54] LABS: Albumin 4.5 g/dL (3.80-4.90); BUN/Creat Ratio 17.5 Ratio (12.00-20.00); Calcium 9.9 mg/dL (8.7-10.3); Folate, Serum 15.1 ng/mL; Non-African American GFR(CKD) 117.4 (60.0-200.0); Potassium 4.3 mmol/L (3.5-5.5); Total Protein 7.2 g/dL (6.2-8.2)
[2019-07-22 20:55] LABS: Albumin/Globulin Ratio 1.67 (1.60-3.17); Globulin 2.7 g/dL (1.6-3.3); Total Bilirubin 0.5 mg/dL (0.3-1.2)
== END | disposition home or self-care (01) ==
LOC: LABWHC1 13:03
PROVIDERS: ATTEND Surgery
DX: E44.0 Moderate protein-calorie malnutrition (principal); E66.01 Morbid (severe) obesity due to excess calories; E55.9 Vitamin D deficiency, unspecified
CPT/HCPCS: 36415; 80053; 82306; 82607; 82746; 84425; 84443; 85027

== ENCOUNTER → 2019-07-27 | Outpatient (CLI) | payer OTHER ==
[2019-07-27 16:05] VITALS: BP 145/75; PULSE 83; TEMP 98.1; BMI 52.7
--- NOTE | 2019-07-28 12:50 | P.HPBAR ---
Bariatric H&P - History & Physicial H&P Date: 07/27/19 History & Physicial: Visit/CC: two month follow up Patient initial contact: Initial weight: 213.733 kg Initial weight in pounds: 471.20 Height: 5 ft 11 in Initial BMI: 65.7 Last weight: Current weight: 171.458 kg Current weight in pounds: 378.00 Current BMI: 52.7 [place] body weight (based on NIH guidelines): 78.018 kg Excess body weight loss: 31.1% The patient is a 34 year-old M who presents for Bariatric Assessment. Patient p resents today for sleeve yesterday fall. He is on had excellent weight loss. His some minimal GERD. He's had no dysphasia. Past Medical History Past Medical History: Diabetes Mellitus, Sleep Apnea/CPAP/BIPAP Additional Past Medical History / Comment(s): hx diverticulitis, History of Any Multi-Drug Resistant Organisms: None Reported Past Surgical History: Bariatric Surgery, Bowel Resection, Hernia Repair Additional Past Surgical History / Comment(s): PICC LINE/later removed, THORACENTESIS Gastric Sleeve on 06/08/19. Past Anesthesia/Blood Transfusion Reactions: No Reported Reaction Additional Past Anesthesia/Blood Transfusion Reaction / Comm: . Past Psychological History: ADD/ADHD, Depression Smoking Status: Former smoker Past Alcohol Use History: None Reported Additional Past Alcohol Use History / Comment(s): STARTED SMOKING AGE 17- quit July of 2018. < 1 PPD Past Drug Use History: Marijuana Additional Drug Use History / Comment(s): .last used 2 weeks ago - Past Family History Mother Family Medical History: No Reported History Surgical - Exam Vital Signs Temp Pulse BP 98.1 F 83 145/75 07/27/19 15:37 07/27/19 15:37 07/27/19 15:37 - General well developed, well nourished, no distress - Eyes PERRL - ENT normal pinna - Neck no masses - Respiratory normal expansion - Cardiovascular Rhythm: regular - Abdomen Abdomen: soft, non tender Bariatric Assessment & Plan Plan: Status post sleeve history. Patient had excellent weight loss. His GERD is minimal and will be observed. He'll follow-up in 4 weeks. Bariatric Checklist Checklist: Plan: Checklist: EGD: 1. Hiatal hernia: 2. H. Pylori: HgbA1c: Vitamin D: Smoking: Former smoker Primary care physician referral: Dr. Jassi Ivory ([place]) T: [phone] Psychiatry clearance: Cardiology clearance: Sleep study: Diet journal: VTE risk score: VTE risk level: Rehab needs at discharge:
== END | disposition home or self-care (01) ==
LOC: BARWHC3 12:51
PROVIDERS: ATTEND Surgery
DX: Z48.815 Encounter for surgical aftercare following surgery on the digestive system (principal); R11.0 Nausea; R93.49 Abnormal radiologic findings on diagnostic imaging of other urinary organs; Z87.891 Personal history of nicotine dependence; Z79.899 Other long term (current) drug therapy
CPT/HCPCS: 99211

== ENCOUNTER → 2019-07-28 | Outpatient (CLI) | payer OTHER | END | disposition home or self-care (01) | DX: E86.0 Dehydration (principal) | CPT/HCPCS: 96360 ==

== ENCOUNTER → 2019-09-07 | Outpatient (CLI) | payer OTHER ==
[~2019-09-07] MED LIST changes: +CYANOCOBALAMIN 1,000 MCG/ML 1 ML VIAL SQ NR; -DEXAMETHASONE SOD PHOSPHATE 10 MG/ML 1 ML VIAL IV ONE; -LIDOCAINE 1% 20 ML VIAL (10MG/ML) FOR IV START INTRADERMA PRN; -ONDANSETRON 4 MG/2 ML VIAL IVP ONE; -SCOPOLAMINE 1.5MG/72HR PATCH TRANSDERM ONE; -ceFAZolin 3 GM in SODIUM CHLORIDE 0.9% 100 ML IVPB ONE
[2019-09-07 13:52] VITALS: BP 144/85; PULSE 83; TEMP 98.2
[2019-09-07 13:57] VITALS: RESP 20; BMI 48.2
--- NOTE | 2019-09-07 14:53 | P.HPBAR ---
Bariatric H&P - History & Physicial H&P Date: 09/07/19 History & Physicial: Visit/CC: B12 injection, follow up visit Patient initial contact: Initial weight: 213.733 kg Initial weight in pounds: 471.20 Height: 5 ft 11 in Initial BMI: 65.7 Last weight: Current weight: 156.716 kg Current weight in pounds: 345.50 Current BMI: 48.2 [place] body weight (based on NIH guidelines): 78.018 kg Excess body weight loss: 42.0% The patient is a 34 year-old M who presents for Bariatric Assessment. Patient presents today for bariatric follow-up. He has lost 30 pounds since his last visit. He's had some minimal GERD. Past Medical History Past Medical History: Diabetes Mellitus, Sleep Apnea/CPAP/BIPAP Additional Past Medical History / Comment(s): hx diverticulitis, History of Any Multi-Drug Resistant Organisms: None Reported Past Surgical History: Bariatric Surgery, Bowel Resection, Hernia Repair Additional Past Surgical History / Comment(s): PICC LINE/later removed, THORACENTESIS Gastric Sleeve on 06/08/19. Past Anesthesia/Blood Transfusion Reactions: No Reported Reaction Additional Past Anesthesia/Blood Transfusion Reaction / Comm: . Smoking Status: Former smoker - Past Family History Mother Family Medical History: No Reported History Surgical - Exam Vital Signs Temp Pulse Resp BP 98.2 F 83 16 144/85 09/07/19 13:50 09/07/19 13:50 09/07/19 13:50 09/07/19 13:50 - General well developed, well nourished, no distress - Eyes PERRL - ENT normal pinna - Neck no masses - Respiratory normal expansion - Cardiovascular Rhythm: regular - Abdomen Abdomen: soft, non tender Bariatric Assessment & Plan Plan: Morbid obesity improving. His BMI is 48.. Patient has done extremely well. His GERD is minimal old observed. He'll follow-up in 4 weeks. Bariatric Checklist Checklist: Plan: Checklist: EGD: 1. Hiatal hernia: 2. H. Pylori: HgbA1c: Vitamin D: Smoking: Former smoker Primary care physician referral: jesus marie Psychiatry clearance: Cardiology clearance: Sleep study: Diet journal: VTE risk score: VTE risk level: Rehab needs at discharge:
== END | disposition home or self-care (01) ==
LOC: PROCWHC3 13:45
PROVIDERS: ATTEND Surgery
DX: E66.01 Morbid (severe) obesity due to excess calories (principal); D51.9 Vitamin B12 deficiency anemia, unspecified; Z68.42 Body mass index [BMI] 45.0-49.9, adult
CPT/HCPCS: 97803; 96372; G0463; J3420; 99211

== ENCOUNTER → 2019-11-09 | Outpatient (CLI) | payer OTHER ==
[2019-11-09 15:16] VITALS: BP 134/79; PULSE 81; RESP 16; TEMP 99; BMI 43.2
--- NOTE | 2019-11-19 13:01 | P.HPBAR ---
Bariatric H&P - History & Physicial H&P Date: 11/09/19 History & Physicial: Visit/CC: Sleeve f/u Patient initial contact: Initial weight: 213.733 kg Initial weight in pounds: 471.20 Height: 5 ft 11 in Initial BMI: 65.7 Last weight: Current weight: 140.614 kg Current weight in pounds: 310.00 Current BMI: 43.2 [place] body weight (based on NIH guidelines): 78.018 kg Excess body weight loss: 53.8% The patient is a 34 year-old M who presents for Bariatric Assessment.patient presents today for sleeve gastrectomy follow-up. He's had minimal GERD. He states he feels well. He is an excellent weight loss. Past Medical History Past Medical History: Diabetes Mellitus, Sleep Apnea/CPAP/BIPAP Additional Past Medical History / Comment(s): hx diverticulitis, History of Any Multi-Drug Resistant Organisms: None Reported Past Surgical History: Bariatric Surgery, Bowel Resection, Hernia Repair Additional Past Surgical History / Comment(s): PICC LINE/later removed, THORACENTESIS Gastric Sleeve on 06/08/19. Past Anesthesia/Blood Transfusion Reactions: No Reported Reaction Additional Past Anesthesia/Blood Transfusion Reaction / Comm: . Past Psychological History: ADD/ADHD, Depression Smoking Status: Former smoker Past Alcohol Use History: None Reported Additional Past Alcohol Use History / Comment(s): STARTED SMOKING AGE 17- quit July of 2018. < 1 PPD Past Drug Use History: Marijuana Additional Drug Use History / Comment(s): .last used 2 weeks ago - Past Family History Mother Family Medical History: No Reported History Surgical - Exam Vital Signs Temp Pulse Resp BP 99 F 81 16 134/79 11/09/19 15:14 11/09/19 15:14 11/09/19 15:14 11/09/19 15:14 - General well developed, well nourished, no distress - Eyes PERRL - ENT normal pinna - Neck no masses - Abdomen Abdomen: soft, non tender Bariatric Assessment & Plan Plan: patient is doing very well. His crit is minimal old observe. He'll follow up in 4 weeks Bariatric Checklist Checklist: Plan: Checklist: EGD: 1. Hiatal hernia: 2. H. Pylori: HgbA1c: Vitamin D: Smoking: Former smoker Primary care physician referral: jesus marie Psychiatry clearance: Cardiology clearance: Sleep study: Diet journal: VTE risk score: VTE risk level: Rehab needs at discharge:
== END | disposition home or self-care (01) ==
LOC: BARWHC3 15:00
PROVIDERS: ATTEND Surgery
DX: Z48.815 Encounter for surgical aftercare following surgery on the digestive system (principal); K21.9 Gastro-esophageal reflux disease without esophagitis; Z87.891 Personal history of nicotine dependence
CPT/HCPCS: 99211

== ENCOUNTER → 2019-12-07 | Outpatient (CLI) | payer OTHER ==
[2019-12-07 16:01] VITALS: BP 128/75; PULSE 81; RESP 16; TEMP 98.5; BMI 41.2
--- NOTE | 2019-12-14 13:36 | P.HPBAR ---
Bariatric H&P - History & Physicial H&P Date: 12/07/19 History & Physicial: Visit/CC: F/U Patient initial contact: Initial weight: 213.733 kg Initial weight in pounds: 471.20 Height: 5 ft 11 in Initial BMI: 65.7 Last weight: Current weight: 134.008 kg Current weight in pounds: 295.44 Current BMI: 41.2 [place] body weight (based on NIH guidelines): 78.018 kg Excess body weight loss: 58.7% The patient is a 34 year-old M who presents for Bariatric Assessment. Patient presents today for sleeve gastrectomy follow-up. He has minimal complaints. He's had some mild GERD. He is an excellent weight loss. He lost in excess of 100 pounds. Past Medical History Past Medical History: Diabetes Mellitus, Sleep Apnea/CPAP/BIPAP Additional Past Medical History / Comment(s): hx diverticulitis, History of Any Multi-Drug Resistant Organisms: None Reported Past Surgical History: Bariatric Surgery, Bowel Resection, Hernia Repair Additional Past Surgical History / Comment(s): PICC LINE/later removed, THORACENTESIS Gastric Sleeve on 06/08/19. Past Anesthesia/Blood Transfusion Reactions: No Reported Reaction Additional Past Anesthesia/Blood Transfusion Reaction / Comm: . Past Psychological History: ADD/ADHD, Depression Smoking Status: Unknown if ever smoked Past Alcohol Use History: None Reported Additional Past Alcohol Use History / Comment(s): STARTED SMOKING AGE 17- quit July of 2018. < 1 PPD Past Drug Use History: Marijuana Additional Drug Use History / Comment(s): .last used 2 weeks ago - Past Family History Mother Family Medical History: No Reported History Surgical - Exam Vital Signs Temp Pulse Resp BP 98.5 F 81 16 128/75 12/07/19 15:57 12/07/19 15:57 12/07/19 15:57 12/07/19 15:57 - General well developed, well nourished, no distress - Eyes PERRL - ENT normal pinna, normal nares - Neck no masses - Respiratory normal expansion - Cardiovascular Rhythm: regular - Abdomen Abdomen: soft, non tender Bariatric Assessment & Plan Plan: Morbid obesity. Patient is doing quite well. His current BMI is 41. Patient is minimal will be observed. He'll follow-up in 4 weeks. Bariatric Checklist Checklist: Plan: Checklist: EGD: 1. Hiatal hernia: 2. H. Pylori: HgbA1c: Vitamin D: Smoking: Former smoker Primary care physician referral: jesus marie Psychiatry clearance: Cardiology clearance: Sleep study: Diet journal: VTE risk score: VTE risk level: Rehab needs at discharge:
== END | disposition home or self-care (01) ==
LOC: BARWHC3 15:04
PROVIDERS: ATTEND Surgery
DX: Z48.815 Encounter for surgical aftercare following surgery on the digestive system (principal); Z98.84 Bariatric surgery status; E66.01 Morbid (severe) obesity due to excess calories; Z68.41 Body mass index [BMI] 40.0-44.9, adult
CPT/HCPCS: 97803; G0463; 99211

== ENCOUNTER → 2020-07-25 | Outpatient (CLI) | payer OTHER ==
--- NOTE | 2020-07-25 15:26 | P.HPBAR ---
Bariatric H&P - History & Physicial H&P Date: 07/25/20 History & Physicial: Visit/CC: Patient initial contact: Initial weight: 213.733 kg Initial weight in pounds: Height: Initial BMI: Last weight: Current weight: Current weight in pounds: Current BMI: [place] body weight (based on NIH guidelines): Excess body weight loss: The patient is a 35 year-old M who presents for Bariatric Assessment. Patient presents today for sleeve gastrectomy follow-up. He is doing quite well. He is currently today is 232 pounds he presented weight 295 pounds at his last visit. He denies any significant abdominal pain. He does have an incisional hernia. He's had some mild GERD. Past Medical History Past Medical History: Diabetes Mellitus, Sleep Apnea/CPAP/BIPAP Additional Past Medical History / Comment(s): hx diverticulitis, History of Any Multi-Drug Resistant Organisms: None Reported Past Surgical History: Bariatric Surgery, Bowel Resection, Hernia Repair Additional Past Surgical History / Comment(s): PICC LINE/later removed, THORACENTESIS Gastric Sleeve on 06/08/19. Past Anesthesia/Blood Transfusion Reactions: No Reported Reaction Additional Past Anesthesia/Blood Transfusion Reaction / Comm: . Past Psychological History: ADD/ADHD, Depression Smoking Status: Unknown if ever smoked Past Alcohol Use History: None Reported Additional Past Alcohol Use History / Comment(s): STARTED SMOKING AGE 17- quit July of 2018. < 1 PPD Past Drug Use History: Marijuana Additional Drug Use History / Comment(s): .last used 2 weeks ago - Past Family History Mother Family Medical History: No Reported History Surgical - Exam - General well developed, well nourished, no distress - Eyes PERRL - ENT normal pinna - Neck no masses - Respiratory normal expansion - Abdomen 10 cm incisional hernia Abdomen: soft, non tender Bariatric Assessment & Plan Plan: Status post sleeve gastrectomy. Patient doing quite well he's had good resolution of his obesity. Patient follow-up in one month. He'll be scheduled for repair of incisional hernia that time. Bariatric Checklist Checklist: Plan: Checklist: EGD: 1. Hiatal hernia: 2. H. Pylori: HgbA1c: Vitamin D: Smoking: Former smoker Primary care physician referral: jesus marie Psychiatry clearance: Cardiology clearance: Sleep study: Diet journal: VTE risk score: VTE risk level: Rehab needs at discharge:
[2020-07-25 15:34] VITALS: BP 131/69; PULSE 76; TEMP 98; BMI 32.3
[2020-07-25 16:27] LABS: HCT 50.1 % (39.0-53.0); HGB 17.1 gm/dL (13.0-17.5); MCH 31.7 pg (25.0-35.0); MCHC 34.2 g/dL (31.0-37.0); MCV 92.7 fL (80.0-100.0); Platelet Count 230 k/uL (150-450); RDW 13.1 % (11.5-15.5); WBC 11.9 k/uL (3.8-10.6)
[2020-07-26 03:08] LABS: African American GFR (CKD) 128.7 (60.0-200.0); Albumin 4.6 g/dL (3.80-4.90); Albumin/Globulin Ratio 1.84 (1.60-3.17); BUN/Creat Ratio 18.89 Ratio (12.00-20.00); Calcium 10.2 mg/dL (8.7-10.3); Globulin 2.5 g/dL (1.6-3.3); Potassium 4.3 mmol/L (3.5-5.5); Total Bilirubin 0.6 mg/dL (0.2-1.2); Total Protein 7.1 g/dL (6.2-8.2)
[2020-07-26 03:22] LABS: Folate, Serum 16.2 ng/mL
== END | disposition home or self-care (01) ==
LOC: BARWHC3 14:21
PROVIDERS: ATTEND Surgery
DX: Z48.815 Encounter for surgical aftercare following surgery on the digestive system (principal); E66.01 Morbid (severe) obesity due to excess calories; E55.9 Vitamin D deficiency, unspecified; E44.0 Moderate protein-calorie malnutrition; Z98.890 Other specified postprocedural states; Z98.84 Bariatric surgery status; Z71.3 Dietary counseling and surveillance; Z68.32 Body mass index [BMI] 32.0-32.9, adult
CPT/HCPCS: 80053; 82306; 82607; 82746; 84425; 84443; 85027; 99211

== ENCOUNTER 2020-09-02 08:40 | Day surgery (SDC) | payer OTHER ==
[2020-08-29 17:09] VITALS: BMI 32.8
[~2020-09-02 08:40] MED LIST changes: +ACETAMINOPHEN TAB 500 MG TAB PO PRN; -CYANOCOBALAMIN 1,000 MCG/ML 1 ML VIAL SQ NR; +DEXAMETHASONE SOD PHOSPHATE 4 MG/ML 1 ML VIAL IV ONE; +HEPARIN SODIUM,PORCINE/PF 5,000 UNIT/0.5 ML SYRINGE SQ PRN; +LACTATED RINGERS 1,000 ML IV SCH; +LIDOCAINE 1% (10MG/ML) FOR IV START INTRADERMA PRN; +MIDAZOLAM 2 MG/2 ML VIAL IV PRN; +ONDANSETRON 4 MG/2 ML VIAL IVP ONE
[2020-09-02] MEDS ORDERED: LIDOCAINE 1% (10MG/ML) FOR IV START INTRADERMA ONE (09:26)
--- NOTE | 2020-09-02 09:54 | P.GSHP ---
History of Present Illness H&P Date: 09/02/20 Chief Complaint: Right inguinal hernia The 35-year-old male developed a large right inguinal hernia. Patient notes today for open repair. Past Medical History Past Medical History: Diabetes Mellitus, GERD/Reflux, Sleep Apnea/CPAP/BIPAP, Thyroid Disorder Additional Past Medical History / Comment(s): rt inguinal hernia, uses cpap, no current rx for diabetes r/t weight loss, hx diverticulitis, History of Any Multi-Drug Resistant Organisms: None Reported Past Surgical History: Bariatric Surgery, Bowel Resection, Hernia Repair Additional Past Surgical History / Comment(s): PICC LINE/later removed, THORACENTESIS, Gastric Sleeve on 06/08/19. incisional hernia Past Anesthesia/Blood Transfusion Reactions: Previous Problems w/ Anesthesia Additional Past Anesthesia/Blood Transfusion Reaction / Comment(s): slow to wake. Smoking Status: Current every day smoker - Past Family History Mother Family Medical History: No Reported History Medications and Allergies Home Medications Medication Instructions Recorded Confirmed Type Multivitamins, Thera [Multivitamin 1 tab PO DAILY 06/03/19 09/02/20 History (formulary)] Omeprazole 40 mg PO DAILY #30 capsule. 06/09/19 09/02/20 Rx Levothyroxine Sodium [Synthroid] 25 mcg PO DAILY 08/13/19 09/02/20 History Allergies Allergy/AdvReac Type Severity Reaction Status Date / Time No Known Allergies Allergy Verified 09/02/20 09:14 Surgical - Exam Vital Signs Temp Pulse Resp BP Pulse Ox 98.4 F 71 16 121/67 97 09/02/20 09:09 09/02/20 09:09 09/02/20 09:09 09/02/20 09:09 09/02/20 09:09 - General well developed, well nourished, no distress - Eyes PERRL - ENT normal pinna - Neck no masses - Respiratory normal expansion - Cardiovascular Rhythm: regular - Abdomen Abdomen: soft, non tender Hernia: inguinal (Large right inguinal) Assessment and Plan Assessment: Right inguinal hernia. We'll perform repair.
[2020-09-02] MEDS ORDERED: SUCCINYLCHOLINE CHLORIDE 100 MG/5 ML SYR IV ONE (10:43)
[2020-09-02] MEDS ORDERED: KETAMINE 10 MG/ML 20 ML VIAL ONE (10:43)
[2020-09-02] MEDS ORDERED: ROCURONIUM 10 MG/ML (5 ML VIAL) IV ONE (10:43)
[2020-09-02] MEDS ORDERED: KETOROLAC 15 MG/ML 1 ML VIAL ONE (10:43)
[2020-09-02] MEDS ORDERED: LIDOCAINE 1% INJ 10MG/ML (20 ML MDV) ONE (10:43)
[2020-09-02] MEDS ORDERED: ROPIVACAINE 5 MG/ML 30 ML VIAL ONE (10:43)
[2020-09-02] MEDS ORDERED: GLYCOPYRROLATE 0.2 MG/ML 2 ML VIAL ONE (10:43)
[2020-09-02] MEDS ORDERED: NEOSTIGMINE 1 MG/ML 10 ML VIAL ONE (10:43)
[2020-09-02] MEDS ORDERED: PROPOFOL 10 MG/ML 20 ML VIAL IV ONE (10:43)
[2020-09-02] MEDS ORDERED: fentaNYL (PF) 50 MCG/ML 2 ML AMP ONE (10:43)
[2020-09-02] MEDS ORDERED: BUPIVACAINE (PF) 0.5% 30 ML VIAL SQ ONE ×2 (11:14→11:22)
--- NOTE | 2020-09-02 11:34 | P.OP ---
Date of Procedure: 09/02/20 Preoperative Diagnosis: Right inguinal hernia Postoperative Diagnosis: Right inguinal hernia Procedure(s) Performed: () Inguinal hernia with Prolene hernia mesh system plug Anesthesia: GETA Surgeon: Benson Carrillo Estimated Blood Loss (ml): 5 Pathology: none sent Condition: stable Disposition: PACU Description of Procedure: MDESCRIPTION OF PROCEDURE: The patient was placed in the supine position after receiving adequate anesthesia. Patients groin was prepped and draped in the usual sterile fashion. A standard hernia incision was made and the subcutaneous tissues were divided with electrocautery. The fascia of the external oblique was exposed. A anitha the fascia was made with #15 blade. The fascia was then opened with pair of Metzenbaum scissors. A Weitlaner retractor was placed in the wound and the cord structures were grasped and dissected free from the inguinal canal. A rubber [place] drain was placed around the cord structures. The hernial sac was seen on the anterior-medial portion of the cord and this was dissected free from the cord. The hernia sac was then invaginated to the peritoneal cavity. Using blunt finger dissection, the preperitoneal space was dissected and then the Prolene hernial mesh plug was placed into the prepared space. The inferior leaf was expanded. The superior leaf was secured to the pubic tubercle using 2-0 Prolene suture. The lateral portion of the superior leaf was incised and cords tied and secured to the transversalis fascia using 2-0 Prolene suture. Fascia of the external oblique was then closed using #0 Vicryl suture. The [place] drain was removed. The Scarpas fascia was then closed with 3-0 Vicryl suture and skin was closed with jonny. The patient tolerated the procedure well.
[2020-09-02] MEDS: HYDROmorphone 0.5 MG/0.5 ML SYRINGE IVP PRN ×3 (11:45→12:20)
[2020-09-02 11:49] VITALS: TEMP 97.4
[2020-09-02 12:59] VITALS: RESP 18
--- NOTE | 2020-09-02 13:30 | P.ANPRN ---
Procedure Note - Anesthesia - Nerve Block Performed Right Transversus Abdominis Single Time Out Performed: Yes Date of Procedure: 09/02/20 Procedure Start Time: :39 Procedure Stop Time: :43 Location of Patient: PreOp Indication: Acute Post-Operative Pain, Dx/Pain Location, Requested by Surgeon Sedation Type: Sedate with meaningful contact maintained Preparation: Sterile Prep Position: Supine Catheter: None Needle Types: Pajunk Needle Gauge: 21 Ultrasound used to visualize needle placement: Yes Ultrasound used to observe medication spread: Yes Injectate: 0.5% Ropivacaine (see comment for volume) Blood Aspirated: No Pain Paresthesia on Injection Noted: No Resistance on Injection: Normal Image Stored and Saved: Yes Events: Uneventful and Well Tolerated
[2020-09-02] MEDS ORDERED: LACTATED RINGERS 1,000 ML IV ONE (13:42)
[2020-09-02 14:47] VITALS: BP 102/60; PULSE 59
== END 2020-09-02 16:17 | disposition home or self-care (01) ==
LOC: OR 08:40
PROVIDERS: ATTEND Surgery
DX: K40.90 Unilateral inguinal hernia, without obstruction or gangrene, not specified as recurrent (principal); K21.9 Gastro-esophageal reflux disease without esophagitis; E11.9 Type 2 diabetes mellitus without complications; G47.30 Sleep apnea, unspecified; Z99.89 Dependence on other enabling machines and devices; E07.9 Disorder of thyroid, unspecified; F17.210 Nicotine dependence, cigarettes, uncomplicated; R63.4 Abnormal weight loss; Z98.84 Bariatric surgery status; Z90.49 Acquired absence of other specified parts of digestive tract; Z87.19 Personal history of other diseases of the digestive system; Z98.890 Other specified postprocedural states; Z79.890 Hormone replacement therapy; Z79.899 Other long term (current) drug therapy
CPT/HCPCS: 49650; 64486; C1781; J2250; J1100; J2710; J0690; J2405; J2001; J3010; J2795; J1885; J0330; J2704; J1170; J1644; 64488

== ENCOUNTER → 2020-09-12 | Outpatient (CLI) | payer OTHER ==
[2020-09-12 15:33] VITALS: BP 109/74; PULSE 80; TEMP 98.2; BMI 32.6
--- NOTE | 2020-09-12 17:33 | P.HPBAR ---
Bariatric H&P - History & Physicial H&P Date: 09/12/20 History & Physicial: Visit/CC: surgical follow up Patient initial contact: Initial weight: 213.733 kg Initial weight in pounds: 471.20 Height: 5 ft 11 in Initial BMI: 65.7 Last weight: Current weight: 106.141 kg Current weight in pounds: 234.00 Current BMI: 32.6 [place] body weight (based on NIH guidelines): 78.018 kg Excess body weight loss: 79.2% The patient is a 35 year-old M who presents for Bariatric Assessment. She presents today for sleeve gastrectomy. He's had a recent right inguinal hernia repair. He's had some minimal GERD. He's done extremely well. He's lost another couple pounds last visit. Past Medical History Past Medical History: Diabetes Mellitus, GERD/Reflux, Sleep Apnea/CPAP/BIPAP, Thyroid Disorder Additional Past Medical History / Comment(s): rt inguinal hernia, uses cpap, no current rx for diabetes r/t weight loss, hx diverticulitis, History of Any Multi-Drug Resistant Organisms: None Reported Past Surgical History: Bariatric Surgery, Bowel Resection, Hernia Repair Additional Past Surgical History / Comment(s): PICC LINE/later removed, THORACENTESIS, Gastric Sleeve on 06/08/19. incisional hernia inguinal hernia repair 08-27-20 Past Anesthesia/Blood Transfusion Reactions: Previous Problems w/ Anesthesia Additional Past Anesthesia/Blood Transfusion Reaction / Comm: slow to wake. Past Psychological History: No Psychological Hx Reported Smoking Status: Current every day smoker Past Alcohol Use History: None Reported Additional Past Alcohol Use History / Comment(s): STARTED SMOKING AGE 17. rusty brito 1ppd Past Drug Use History: Marijuana Additional Drug Use History / Comment(s): instructed to hold 24 hrs prior to procedures - Past Family History Mother Family Medical History: No Reported History Surgical - Exam Vital Signs Temp Pulse BP 98.2 F 80 109/74 09/12/20 15:30 09/12/20 15:30 09/12/20 15:30 - General well developed, well nourished, no distress - Eyes PERRL - ENT normal pinna - Neck no masses - Respiratory normal expansion - Cardiovascular Rhythm: regular - Abdomen Abdomen: soft, non tender Bariatric Assessment & Plan Plan: Status post sleeve yesterday. Patient's GERD is minimal will be observed. He'll follow-up in one month. Bariatric Checklist Checklist: Plan: Checklist: EGD: 1. Hiatal hernia: 2. H. Pylori: HgbA1c: Vitamin D: Smoking: Former smoker Primary care physician referral: jesus marie Psychiatry clearance: Cardiology clearance: Sleep study: Diet journal: VTE risk score: VTE risk level: Rehab needs at discharge:
== END | disposition home or self-care (01) ==
LOC: BARWHC3 14:56
PROVIDERS: ATTEND Surgery
DX: Z48.815 Encounter for surgical aftercare following surgery on the digestive system (principal); Z98.84 Bariatric surgery status; K21.9 Gastro-esophageal reflux disease without esophagitis
CPT/HCPCS: 99211

== ENCOUNTER 2020-09-24 22:58 | Emergency (ER) | payer OTHER ==
[2020-09-24 23:04] VITALS: RESP 18; TEMP 98.3
[2020-09-24] MEDS ORDERED: CEPHALEXIN 500 MG CAP PO STA (23:45)
[2020-09-24] MEDS ORDERED: CEPHALEXIN 500MG STARTER PACK 4 CAP BTL PO STA (23:45)
--- NOTE | 2020-09-24 23:45 | ED ---
Recheck HPI - General Chief Complaint: Abdominal Pain Stated Complaint: poss infection at surgical site Time Seen by Provider: 09/24/20 23:17 Source: patient, RN notes reviewed, old records reviewed Mode of arrival: ambulatory Limitations: no limitations - History of Present Illness Initial Comments: This is a 35-year-old male DF for evaluation patient of recent surgery hernia repair. 1 month ago he has had follow-up with no difficulty. Patient noticed some clear fluid draining from his surgical site tonight with some increased swelling and maybe some increased tenderness. Patient is otherwise afebrile eating and drinking appropriately with normal bowel movements MD Complaint: wound re-check -: hour(s) Symptoms Since Prior Visit: worsening pain, worsening swelling, worsening discharge Associated Symptoms: none Treatments Prior to Arrival: other (none) - Related Data Home Medications Medication Instructions Recorded Confirmed Multivitamins, Thera [Multivitamin 1 tab PO DAILY 06/03/19 09/12/20 (formulary)] Levothyroxine Sodium [Synthroid] 25 mcg PO DAILY 08/13/19 09/12/20 Previous Rx's Medication Instructions Recorded Omeprazole 40 mg PO DAILY #30 capsule. 06/09/19 Acetaminophen Tab [Tylenol] 650 mg PO Q6H #30 tab 09/02/20 Docusate [Colace] 100 mg PO BID #20 capsule 09/02/20 Ibuprofen [Motrin] 600 mg PO Q6HR PRN #40 tab 09/02/20 oxyCODONE HCL [OxyIR] 5 mg PO Q6H PRN 3 Days #10 tab 09/02/20 Allergies Allergy/AdvReac Type Severity Reaction Status Date / Time No Known Allergies Allergy Verified 09/24/20 23:04 Review of Systems ROS Statement: Those systems with pertinent positive or pertinent negative responses have been documented in the HPI. ROS Other: All systems not noted in ROS Statement are negative. Past Medical History Past Medical History: Diabetes Mellitus, GERD/Reflux, Sleep Apnea/CPAP/BIPAP, Thyroid Disorder Additional Past Medical History / Comment(s): rt inguinal hernia, uses cpap, no current rx for diabetes r/t weight loss, hx diverticulitis, History of Any Multi-Drug Resistant Organisms: None Reported Past Surgical History: Bariatric Surgery, Bowel Resection, Hernia Repair Additional Past Surgical History / Comment(s): PICC LINE/later removed, THORACENTESIS, Gastric Sleeve on 06/08/19. incisional hernia inguinal hernia repair 09-02-20 Past Anesthesia/Blood Transfusion Reactions: Previous Problems w/ Anesthesia Additional Past Anesthesia/Blood Transfusion Reaction / Comment(s): slow to wake. Past Psychological History: No Psychological Hx Reported Smoking Status: Current every day smoker Past Alcohol Use History: None Reported Past Drug Use History: Marijuana - Past Family History Mother Family Medical History: No Reported History General Exam - General Exam Comments Initial Comments: No significant drainage from surgical site, incision is clean dry and intact wi th no cellulitis Limitations: no limitations General appearance: alert, in no apparent distress Head exam: Present: atraumatic, normocephalic, normal inspection Eye exam: Present: normal appearance, PERRL, EOMI. Absent: scleral icterus, conjunctival injection, periorbital swelling ENT exam: Present: normal exam, mucous membranes moist Neck exam: Present: normal inspection. Absent: tenderness, meningismus, lymphadenopathy Respiratory exam: Present: normal lung sounds bilaterally. Absent: respiratory distress, wheezes, rales, rhonchi, stridor Cardiovascular Exam: Present: regular rate, normal rhythm, normal heart sounds. Absent: systolic murmur, diastolic murmur, rubs, gallop, clicks GI/Abdominal exam: Present: soft, normal bowel sounds. Absent: distended, tende rness, guarding, rebound, rigid Extremities exam: Present: normal inspection, full ROM, normal capillary refill. Absent: tenderness, pedal edema, joint swelling, calf tenderness Back exam: Present: normal inspection Neurological exam: Present: alert, oriented X3, CN II-XII intact Psychiatric exam: Present: normal affect, normal mood Skin exam: Present: warm, dry, intact, normal color. Absent: rash Course Vital Signs 09/24/20 09/25/20 23:01 00:12 Temperature 98.3 F Pulse Rate 91 64 Respiratory 18 18 Rate Blood Pressure 123/73 116/72 O2 Sat by Pulse 99 98 Oximetry - Reevaluation(s) Reevaluation #1: Medical record is reviewed Patient symptoms are significantly improved here in the ER Patient informed of results and questions are answered Patient did have area aspirated with no significant discharge no pus mild seroma with blood Medical Decision Making - Medical Decision Making 35 male to the ER for evaluation patient does have mild surgical site seroma. Most of it did drain by itself. The rest is drainage here in the ER can follow- up with Dr. Carrillo this week - Radiology Data Radiology results: report reviewed (X-ray KUB negative for acute disease), image reviewed Disposition Clinical Impression: Abdominal pain, Seroma Disposition: HOME SELF-CARE Condition: Good Instructions (If sedation given, give patient instructions): Abdominal Pain (ED) Is patient prescribed a controlled substance at d/c from ED?: No Referrals: Jassi Ivory MD [Primary Care Provider] - 1-2 days
--- NOTE | 2020-09-24 23:57 | XR ---
EXAMINATION TYPE: XR KUB DATE OF EXAM: 09/24/2020 COMPARISON: NONE HISTORY: Hernia surgery. Pain. TECHNIQUE: 2 views FINDINGS: There is blunting right costophrenic angle. Heart size is normal. There is no sign of intes tinal obstruction or pneumoperitoneum. Fecal pattern is normal. There is no evidence of a mass. IMPRESSION: There is evidence for right pleural effusion. No free air. No evidence of bowel obstructi on.
[2020-09-25 00:13] VITALS: BP 116/72; PULSE 64
== END 2020-09-25 00:13 | disposition home or self-care (01) ==
LOC: EC 22:58
DX: K91.872 Postprocedural seroma of a digestive system organ or structure following a digestive system procedure (principal); K21.9 Gastro-esophageal reflux disease without esophagitis; F17.200 Nicotine dependence, unspecified, uncomplicated; E11.9 Type 2 diabetes mellitus without complications; G47.33 Obstructive sleep apnea (adult) (pediatric); F12.90 Cannabis use, unspecified, uncomplicated; E07.9 Disorder of thyroid, unspecified; Z98.84 Bariatric surgery status; Z99.81 Dependence on supplemental oxygen
CPT/HCPCS: 74018; 99284